=== PATIENT | female | born 1955 | race Caucasian/White ===

== ENCOUNTER 2016-07-13 13:53 | Inpatient (IN) | payer BC, MEDICAID, OTHER ==
[2016-07-13] MEDS ORDERED: ASPIRIN 325 MG TAB PO ONE (14:13)
[2016-07-13] MEDS ORDERED: ASPIRIN 81 MG CHEWABLE TAB ONE (14:16)
--- NOTE | 2016-07-13 14:20 | CPEKG ---
Heart Rate: 108 RR Interval: 556 P-R Interval: 136 QRSD Interval: 80 QT Interval: 328 QTC Interval: 440 P Jones: 21 QRS Jones: 0 T Wave Jones: 11 EKG Severity - ABNORMAL ECG - EKG Impression: SINUS TACHYCARDIA EKG Impression: LEFT VENTRICULAR HYPERTROPHY Electronically Signed By: Ruddy Torres 13-Jul-2016 17:07:39
[2016-07-13 15:01] LABS: HEMATOCRIT 38.9 % (38.0-47.0); HEMOGLOBIN 13.3 g/dL (12.6-16.3); MEAN CELL HEMOGLOBIN 29.4 pg (27.9-34.1); MEAN CELL HEMOGLOBIN CONCENTR. 34.2 g/dL (32.4-36.7); MEAN CELL VOLUME 86.1 fL (81.5-99.8); RED BLOOD CELL COUNT 4.52 10^6/uL (4.18-5.33); RED CELL DISTRIBUTION WIDTH 15.1 % (11.5-15.2)
[2016-07-13 15:02] LABS: MEAN PLATELET VOLUME 10.2 fL (8.7-11.7); PLATELET COUNT 102 10^3/uL (150-400)
[2016-07-13 15:04] LABS: ADD DIFF? NO; ADD MORPH? NO; ADD SCAN? NO
[2016-07-13 15:23] LABS: INR 1.17 (0.83-1.16); PROTIME(PATIENT) 14.7 SEC (12.0-15.0)
[2016-07-13 15:24] LABS: APTT 32.7 SEC (23.0-38.0)
[2016-07-13 15:40] LABS: ALANINE AMINOTRANSFERASE 34 IU/L (9-52); ALBUMIN 2.1 g/dL (3.5-5.0); ALKALINE PHOSPHATASE 177 IU/L (38-126); ANION GAP 11 mEq/L (8-16); ASPARTATE AMINOTRANSFERASE 50 IU/L (14-46); BILIRUBIN,TOTAL 1.3 mg/dL (0.1-1.4); CALCIUM 7.6 mg/dL (8.5-10.4); CARBON DIOXIDE 19 mEq/l (22-31); CHLORIDE 106 mEq/L (97-110); CREATININE 1.4 mg/dL (0.6-1.0); GLOMERULAR FILTRATION RATE 38; GLUCOSE 209 mg/dL (70-100); POTASSIUM 4.9 mEq/L (3.5-5.2); SODIUM 136 mEq/L (134-144); TOTAL PROTEIN 6.7 g/dL (6.3-8.2)
[2016-07-13 15:48] LABS: TROPONIN I < 0.012 ng/mL (0-0.034)
--- NOTE | 2016-07-13 15:49 | DX ---
Chest, Two Views - July 13, 2016, at 1427 hours History: Shortness of breath, chest pain. Comparison: 2016. Findings: Cardiac silhouette is within normal range. Poor inspiratory phase with patchy bilateral l ower lobe opacities, left greater than right, appearing worse since June 2016. Possible minimal b ilateral pleural effusions. No pneumothorax. No definite pulmonary edema. Impression: Worsening bilateral lower lobe infiltrates, left greater than right, with possible mini mal bilateral pleural effusions, which may represent bilateral lower lobe pneumonia or pulmonary infa rcts. Findings and recommendations discussed with Dr. Ruddy Torres at 1520 hours today.
--- NOTE | 2016-07-13 15:54 | UCPHY ---
H & P Patient Type: Established Chief Complaint Nursing Narrative: cp sob back pain for awhile . Worse with exertion. Seen 06/04 here and repeat xr 06/21 with pcp. Time Seen by Provider: 07/13/16 14:17 HPI/ROS: This patient presents with a chief complaint of shortness of breath. In June on the the patient was seen here with similar complaints and given IV antibiotics and a Z-Napoleon for pneumonia and discharged. She was seen on the 14 of June by her PCP. A CT scan was obtained on the visit and showed a questionable embolus as well as a small amount of ascites. Apparently this was not followed up. Since then the patient continues to worsen her breathing is much worse and she has noticed that her legs are quite swollen. She describes a central chest pain which is worse with respiration and the supine position and this pain seems to radiate into her right posterior chest. She has had minimal cough and no fever but does say she has been chilled. She has had nausea without vomiting but has had diarrhea after eating for the past week and also anorexia. She has sore throat, ear pain, headache and nasal congestion as well. She denies any urinary tract symptoms. She feels extremely fatigued REVIEW OF SYSTEMS: Constitutional: Fatigue, chills, no fever Eyes: No complaint ENT: Sore throat, nasal congestion, ear pain Respiratory: Shortness of breath minimal cough Cardiac: Chest pain, pleuritic Gastrointestinal: Nausea, anorexia, diarrhea no vomiting Genitourinary: Denies frequency, urgency, dysuria Musculoskeletal: Back pain, swollen legs and feet Skin: No rash Neurological: Headache Source: Patient, RN notes reviewed, Old records Exam Limitations: No limitations - Personal History Current Tetanus Diphtheria and Acellular Pertussis (TDAP): Unsure - Medical/Surgical History Hx Diabetes: Yes Other PMH: HTN, RA, knee replacement, gall bladder, reflux - Family History Significant Family History: No pertinent family hx - Social History Smoking Status: Former smoker - Physical Exam Exam: GENERAL: This patient is alert and appropriate although in mild respiratory distress which was helped by oxygen. She has both tachypneic and tachycardic HEAD: Atraumatic, normocephalic. EYES: Pupils equal round and reactive to light, extraocular movements intact, sclera anicteric, conjunctiva are normal. ENT: TMs normal, nares patent, oropharynx clear without exudates. Dry mucous membranes. NECK: Normal range of motion, supple without lymphadenopathy or JVD. LUNGS: There are diffuse rales present HEART: Regular rate and rhythm without murmurs, rubs or gallops. Tachycardia ABDOMEN: Soft, nontender, normoactive bowel sounds. No guarding, no rebound. No masses appreciated. EXTREMITIES: There is prominent lower extremity edema although I can detect no presacral edema. Peripheral pulses are symmetric. The patient's range of motion is limited by her significant rheumatoid arthritis NEUROLOGICAL: Cranial nerves II through XII grossly intact. Normal speech, PSYCH: Normal mood, normal affect. SKIN: Warm, dry, normal turgor, no visible rashes or lesions. Back: There is tenderness in the midline lower back and also mild tenderness over the right CVA area. Constitutional: Initial Vital Signs Temperature (C) 36.6 C 07/13/16 14:15 Heart Rate 114 H 07/13/16 14:15 Respiratory Rate 30 H 07/13/16 14:15 Blood Pressure 185/83 H 07/13/16 14:15 O2 Sat (%) 89 L 07/13/16 14:15 O2 Delivery Mode Nasal Cannula O2 (L/minute) 3 Allergies/Adverse Reactions: No Known Allergies Allergy (Verified 07/13/16 13:57) Home Medications: Medication Instructions Recorded Actemera 04/05/11 Omeprazole 20 mg PO 04/17/11 Insulin Glargine [Lantus 100 01/20/16 UNITS/ML (*)] Losartan Potassium [Cozaar] 01/20/16 Tocilizumab [ACTEMRA] 01/20/16 Medical Decision Making - Diagnostics EKG Interpretation: An EKG shows no acute changes Imaging: A chest x-ray shows some infiltrative changes at the bases but there is no eliezer congestive heart failure, pulmonary edema or changes of COPD. A pulmonary angiogram shows no evidence of pulmonary embolus. In addition there is evidence for liver disease and there is a small amount of ascites present. ED Course/Re-evaluation: An IV was started the patient was hydrated with normal saline and she was given 500 mg of azithromycin and 2 g of Rocephin intravenously. She was maintained on oxygen and also monitored throughout her stay in the department. She remained stable although uncomfortable throughout her stay. The hospitalist was contacted and agreed to accept this patient in transfer. Differential Diagnosis: There is no evidence at this time for congestive failure except for her elevated BNP and no evidence for pulmonary embolus. Because of the elevated lactate early sepsis is a possibility in spite of the fact that her temperature and white blood cell count not elevated. This potentially could be related to diminished perfusion. Her elevated BUN and creatinine potentially could be due to dehydration although this is unclear. - Data Points Laboratory Results: Laboratory Results 07/13/16 14:45 07/13/16 14:45 07/13/16 14:45 WBC 5.50 10^3/uL (3.80-9.50) RBC 4.52 10^6/uL (4.18-5.33) Hgb 13.3 g/dL (12.6-16.3) Hct 38.9 % (38.0-47.0) MCV 86.1 fL (81.5-99.8) MCH 29.4 pg (27.9-34.1) MCHC 34.2 g/dL (32.4-36.7) RDW 15.1 % (11.5-15.2) Plt Count 102 L 10^3/uL (150-400) MPV 10.2 fL (8.7-11.7) Neut % (Auto) 4.1 L % (39.3-74.2) Lymph % (Auto) 0.7 L % (15.0-45.0) [place] % (Auto) 0.6 L % (4.5-13.0) Eos % (Auto) 0.0 L % (0.6-7.6) Baso % (Auto) 0.0 L % (0.3-1.7) Nucleat RBC Rel Count 0.0 % (0.0-0.2) Absolute Neuts (auto) 75.00 H 10^3/uL (1.70-6.50) Absolute Lymphs (auto) 12.40 H 10^3/uL (1.00-3.00) Absolute Monos (auto) 11.60 H 10^3/uL (0.30-0.80) Absolute Eos (auto) 0.40 10^3/uL (0.03-0.40) Absolute Basos (auto) 0.20 H 10^3/uL (0.02-0.10) Absolute Nucleated RBC 0.00 10^3/uL (0-0.01) Immature Gran % 0.0 % (0.0-1.1) Immature Gran # 0.40 H 10^3/uL (0.00-0.10) VBG Lactic Acid 2.4 H mmol/L (0.7-2.1) Sodium 136 mEq/L (134-144) Potassium 4.9 mEq/L (3.5-5.2) Chloride 106 mEq/L (97-110) Carbon Dioxide 19 L mEq/l (22-31) Anion Gap 11 mEq/L (8-16) BUN 42 H mg/dL (7-23) Creatinine 1.4 H mg/dL (0.6-1.0) Estimated GFR 38 Glucose 209 H mg/dL (70-100) Calcium 7.6 L mg/dL (8.5-10.4) Total Bilirubin 1.3 mg/dL (0.1-1.4) AST 50 H IU/L (14-46) ALT 34 IU/L (9-52) Alkaline Phosphatase 177 H IU/L (38-126) Troponin I < 0.012 ng/mL (0-0.034) NT-Pro-B Natriuret Pep 1660 H pg/mL (0-125) Total Protein 6.7 g/dL (6.3-8.2) Albumin 2.1 L g/dL (3.5-5.0) Medications Given: Discontinued Medications Aspirin (Aspirin) 325 mg PO EDNOW ONE Stop: 07/13/16 14:14 Last Admin: 07/13/16 14:20 Dose: 325 mg Ceftriaxone Sodium 2 gm/ (Dextrose) 50 mls @ 100 mls/hr IV EDNOW ONE PRN Reason: Protocol Stop: 07/13/16 17:17 Last Admin: 07/13/16 16:58 Dose: 50 mls Azithromycin 500 mg/ Dextrose 255 mls @ 255 mls/hr IV EDNOW ONE PRN Reason: Protocol Stop: 07/13/16 17:48 Last Admin: 07/13/16 18:00 Dose: 255 mls Departure - Departure Disposition: [facility] Clinical Impression: Pneumonia Qualifiers: Pneumonia type: due to unspecified organism Laterality: bilateral Lung location : lower lobe of lung Qualifier Code: (J18.9) Pneumonia, unspecified organism Clinical Impression: (Ruled Out): Dyspnea Condition: Fair - PQRS PQRS Measurement: Not applicable
[2016-07-13] MEDS ORDERED: IOPAMIDOL (ISOVUE 370) 100 ML BTL IV ONE (15:58)
--- NOTE | 2016-07-13 16:40 | CT ---
CT Pulmonary Angiogram Clinical Indications: Shortness of breath and chest pain. Technique: Thinly collimated multidetector helical CT imaging was performed through the chest while 85 mL Isovue-370 were injected intravenously, without complication. The images were then transferred to an independent workstation where multiplanar and three-dimensional reconstructions were performed by the interpreting physician and reviewed at multiple windows. Dose reduction techniques were util ized. Comparison: June 04, 2016. Findings Chest: Patchy bibasilar consolidative change and some linear scarring or consolidation in the right upper lobe is present. This was worse than comparison. Heart size is normal and there is no pericar dial effusion. No adenopathy and no pulmonary masses are found. CT Pulmonary Angiogram: No intraluminal filling defects are seen in the pulmonary arterial system to suggest pulmonary embolus. The thoracic aorta has a normal contour, without evidence of aneurysm or dissection. In the upper abdomen, there is ascites, a low dense liver on the postcontrast imaging, and some sugge stion of splenomegaly. Impressions 1. No pulmonary emboli. 2. Patchy basilar consolidative change. There is also some linear scarring or volume loss against t he minor fissure in the right upper lobe. 3. Diffuse low dense liver, with ascites and splenomegaly, suggests fatty infiltration of the liver versus cirrhosis. Critical results discussed by Dr. Gaitan with Dr. Ruddy Torres on July 13, 2016 at 1632 hours.
[2016-07-13] MEDS ORDERED: ONDANSETRON 4 MG/2 ML VIAL IVP PRN (16:42)
[2016-07-13] MEDS ORDERED: NS 1,000 ML IV ONE (16:42)
[2016-07-13] MEDS ORDERED: NS 1,000 ML IV SCH (16:45)
[2016-07-13] MEDS ORDERED: cefTRIAXone 1 GM VIAL ONE (16:45)
[2016-07-13] MEDS ORDERED: NS 100 ML BAG (MINI-BAG) IV ONE (16:47)
[2016-07-13] MEDS ORDERED: cefTRIAXone 2 GM in D5W 50 ML IV ONE (16:48)
[2016-07-13] MEDS ORDERED: AZITHROMYCIN IV 500 MG in D5W 250 ML IV ONE (16:49)
[2016-07-13] MEDS ORDERED: D50W 25 GM/50 ML SYR IVP PRN (21:25)
[2016-07-13] MEDS: IPRATROPIUM/ALBUTEROL 3 ML DEYVIAL IH SCH (21:35)
[2016-07-13] MEDS: ACETAMINOPHEN 325 MG TAB PO PRN (22:14)
[2016-07-13] MEDS: guaiFENesin 600 MG TAB.ER PO SCH (22:14)
[2016-07-13] MEDS: HEPARIN 5,000 UNIT/0.5 ML SYR SC SCH (22:15)
--- NOTE | 2016-07-13 22:40 | GHP ---
[f rep st] HISTORY AND PHYSICAL DATE OF ADMISSION: 07/13/2016 CHIEF COMPLAINT: Shortness of breath. HISTORY OF PRESENT ILLNESS: This is a 61-year-old female with a history of diabetes, hypertension, a nd rheumatoid arthritis who presents with a complaint of essentially 6 weeks of shortness of breath. Patient presented to the outside urgent care clinic with complaints of shortness of breath in early June and, at that time, was given antibiotics for presumed pneumonia. The patient completed a co urse of azithromycin and describes that it did improve her symptoms and then in the last 2 weeks has had recurrence of her shortness of breath. She describes nonproductive cough, subjective fevers, and chills, and shortness of breath. Patient cannot identify any known sick contacts. She recently mov ed from [place] approximately a month ago. In [place] she had no history of lung disease. She was on Humira for her rheumatoid arthritis which was discontinued when she was diagnosed with pneumo ronaldo. The patient reports new lower extremity edema in the past couple of weeks. PAST MEDICAL HISTORY: 1. Diabetes. 2. Hypertension. 3. Rheumatoid arthritis. SOCIAL HISTORY: Negative for tobacco, alcohol or illicit drugs. FAMILY HISTORY: Positive for diabetes. ADVANCE DIRECTIVES: Patient is full cor, full tube. Her would be her medical decision maker . REVIEW OF SYSTEMS: A 10-point review of systems is negative with the exception of that reported in t he HPI. PHYSICAL EXAMINATION: VITAL SIGNS: At the [facility], the patient is 89%-90% on room air. Currently saturating 98% on 5 L. Blood pressure 179/76, heart rate ranging from the 90s to low 100s. Respiratory rate in the low 20s to high 20s. Afebrile at 36.9. GENERAL: This is a depressed- appearing middle-aged female sitting up in bed. HEENT: Notable for dry mucous membranes. Eye exam is negative for any icterus. CARDIAC: Patient is tachycardic but regular. PULMONARY: Has poor res piratory effort. Had isolated rale in the right middle lobe. Otherwise, diminished breath sounds at bilateral bases. No wheezing is appreciated. GASTROINTESTINAL: Positive bowel sounds. ABDOMEN: S oft and nontender to palpation. MUSCULOSKELETAL: Notable for 2+ symmetric lower extremity edema. NE UROLOGIC: She is alert and oriented x3. PSYCHIATRIC: She appears very depressed to me and withdraw n during my examination. LABORATORY DATA: White count 5.5, hematocrit 38.9, platelets of 102, INR 1.17. Initial lactic acid of 2.4, creatinine 1.4. Baseline unknown. BUN 42, troponin less than 0.012. BNP of 1660. The alex ent is negative for influenza. A CTA of the chest, which I personally reviewed and interpreted, show s no pulmonary emboli. There is patchy bibasilar consolidation visualized. EKG, which I personally reviewed and interpreted, shows sinus rhythm, normal axis, voltage consistent with LVH, no acute ST-T changes. ASSESSMENT AND PLAN: This is a 61-year-old female presenting with persistent shortness of breath. 1. Acute hypoxic respiratory failure. Patient's oxygen saturations are fluctuating a bit but appear to be ranging with requirements from 1-5 L. Suspect it is related to the consolidative changes we s ee at her lung bases. May be an untreated pneumonia after a course of azithromycin. We will empiric ally treat for community-acquired pneumonia and send laboratories to rule out some of the more atypic al pathogens. Blood cultures have been sent ordering sputum cultures, and we will follow her clinica l progress. 2. Presumed community-acquired pneumonia, as above. We see consolidation in the bilateral bases. W e will start empiric antibiotics and follow her culture data. 3. Presumed acute kidney injury. Suspect this is related to volume. The patient's says her intake has been low. We will fluid resuscitate and follow in the morning. 4. New lower extremity edema. This is a new physical complaint for her. Although my suspicion for a new diagnosis of heart failure is low, her BNP is elevated which warrants a transthoracic echocardi ogram. The patient has been through some recent stressors. Could consider something such as takotsu wen; however, her EKG and troponin are negative. We will order a transthoracic echo and go from there . 5. Diabetes. She reports that her insulin requirements have been down recently. I suspect this is likely related to her decreased oral intake. We will start only with sliding scale insulin. Can add back Lantus if her sugars are too high. 6. Thrombocytopenia. Again, not sure if this is new or old. We will recheck a platelet count in th e morning. Have written for subcutaneous heparin for prophylaxis. We will need to follow this close ly. 7. Hypertension. We will continue patient's home medications when reconciled. 8. Rheumatoid arthritis. We will continue to hold the patient's biologic agents in the setting of p resumed acute infection. 9. Prophylaxis with heparin subcutaneously secondary to her creatinine clearance. 10. Diet. Diabetic. DISPOSITION: I expect greater than 2 midnights as the patient is requiring more diagnostic workup to understand her chronic complaints of shortness of breath and her pulmonary infiltrates. I have disc ussed the case with the [facility] doctor. The patient will be transitioned over to e PCU for care. /[id number]/MODL
[2016-07-14] MEDS: HEPARIN 5,000 UNIT/0.5 ML SYR SC SCH ×4 (04:48→19:33)
[2016-07-14 05:02] LABS: % IMMATURE GRANULYOCYTES 0.3 % (0.0-1.1); ABSOLUTE IMMATURE GRANULOCYTES 0.01 10^3/uL (0.00-0.10); ADD DIFF? NO; ADD MORPH? NO; ADD SCAN? NO; ATYPICAL LYMPHOCYTE FLAG 0 (0-99); FRAGMENT RBC FLAG 0 (0-99); HEMATOCRIT 32.6 % (38.0-47.0); LEFT SHIFT FLG 40 (0-99); LIPEMIA HEMOLYSIS FLAG 80 (0-99); MEAN CELL HEMOGLOBIN 29.9 pg (27.9-34.1); MEAN CELL HEMOGLOBIN CONCENTR. 33.7 g/dL (32.4-36.7); MEAN CELL VOLUME 88.6 fL (81.5-99.8); MEAN PLATELET VOLUME 11.9 fL (8.7-11.7); PLATELET CLUMPS FLAG 50 (0-99); PLATELET COUNT 77 10^3/uL (150-400); RED BLOOD CELL COUNT 3.68 10^6/uL (4.18-5.33); RED CELL DISTRIBUTION WIDTH 15.2 % (11.5-15.2)
[2016-07-14 05:17] LABS: ANION GAP 7 mEq/L (8-16); CARBON DIOXIDE 20 mEq/l (22-31); CHLORIDE 110 mEq/L (97-110); CREATININE 1.4 mg/dL (0.6-1.0); GLOMERULAR FILTRATION RATE 38; GLUCOSE 160 mg/dL (70-100); POTASSIUM 4.8 mEq/L (3.5-5.2); SODIUM 137 mEq/L (134-144)
[2016-07-14] MEDS: IPRATROPIUM/ALBUTEROL 3 ML DEYVIAL IH SCH ×4 (06:00→21:36)
[2016-07-14] MEDS: HYDROCODONE/APAP 5/325 TAB PO PRN ×3 (07:45→21:17)
[2016-07-14] MEDS: INSULIN LISPRO 100 UNIT/ML SC SCH ×3 (07:46→17:51)
[2016-07-14] MEDS: LORazepam 0.5 MG TAB PO PRN ×2 (07:46→21:17)
[2016-07-14] MEDS ORDERED: FUROSEMIDE 40 MG/4 ML VIAL IVP ONE (08:36)
--- NOTE | 2016-07-14 08:38 | HOSPPROG ---
Hospitalist Progress Note Assessment/Plan: Acute hypoxemic respiratory failure 2/2 b/l LL PNA - Flu neg. Lactate normalized. Also query element of failure given LE edema, orthopnea, pleural effusions and elevated BNP (1600 compared to ~500 prior). -Cont Ceftriaxone/Azithromycin -BCx's pending -Echo now -Give IV Lasix, hold IVF's -requiring just 1 LPM O2 -query some anxiety component to her dyspneic symptoms Abdominal pain - LFT's mildly elevated and CT notes possible cirrhosis / ascites. Pt denies etoh hx, but notes h/o possible cirrhosis -abdominal u/s -consider paracentesis if significant ascites present Hypertension - cont losartan DM - Will check a1c and give just half her Lantus dose given her acute illness and presumed decreased oral intake. Up-titrate as indicated. Thrombocytopenia - plts dropped to 77 today. Monitor closely RA - hold biologic given acute infection DVT PPLX - MITZI Full code Dispo - cont inpt Subjective: Pt feels SOB, endorses orthopnea, PND, LE edema. No fevers. No cough. Appetite fair. Objective: Vital Signs Temp Pulse Resp BP Pulse Ox 37.3 C 105 H 20 144/66 H 91 L 07/14/16 07:37 07/14/16 07:37 07/14/16 07:37 07/14/16 07:37 07/14/16 07:37 Laboratory Results 07/14/16 04:23 07/14/16 04:23 07/13/16 07/14/16 07/15/16 05:59 05:59 05:59 Intake Total 650 Balance 650 PT 14.7 SEC (12.0-15.0) 07/13/16 Unknown INR 1.17 (0.83-1.16) H 07/13/16 Unknown - Physical Exam Constitutional: no apparent distress Eyes: PERRL Ears, Nose, Mouth, Throat: moist mucous membranes Cardiovascular: regular rate and rhythym, no murmur, rub, or gallop Respiratory: no respiratory distress, inspiratory crackles Gastrointestinal: normoactive bowel sounds, tenderness, other (diffuse TTP, worse in LUQ, no r/r/g) Skin: warm Neurologic: AAOx3 Psychiatric: interacting appropriately ICD10 Worksheet Patient Problems: Problems Problem Status Diagnosed Pneumonia Acute
[2016-07-14] MEDS: guaiFENesin 600 MG TAB.ER PO SCH ×2 (09:19→21:17)
[2016-07-14] MEDS: AZITHROMYCIN IV 500 MG in D5W 250 ML IV SCH (10:19)
--- NOTE | 2016-07-14 10:57 | ECHO ---
[id number] + + [address] : : [place] [address] : : [phone] + Adult Echocardiographic Report + -----+ :Name: SOFÍA JARRELL SStudy Date: 07/14/2016 08:41 AM : : Hospital Admission Number: [id number] Location : 215: :: 1955 Gender: Female Height: 61 in : :Age: 61 yrs Race: WH Weight: 190 lb : :Reason For Study: Eval LV Fx : : BSA: 1.8 meters2 : :History: SOB, LE Edema : + -----+ MMode/2D Measurements & Calculations IVSd: 0.95 cm LVIDd: 4.2 cm FS: 34.2 % Ao root diam: 2.7 cm LVPWd: 1.1 cm LVIDs: 2.8 cm EDV(Teich): 79.2 ml ACS: 1.6 cm ESV(Teich): 28.8 ml EF(Teich): 63.6 % Normal Measurement Values: + + :LVIDd (3.5-5.7cm) IVSd (0.6-1.1cm) LVPWd (0.6-1.1cm) Aortic Root (2.0-3.7cm)Left Atrium (1.5-4.0cm): :LV Vol(d) (76-115ml) LV Vol(s) (29-48ml) Ejec Fraction (50-65%)PV Ernesto (0.6- 1.2m/s) TV Ernesto (0.4-1.0m/s) : :MV E Ernesto (0.8-1.0m/s)MV A Ernesto (0.3-1.0m/s)LVOT Ernesto (0.7-1.2m/s) Asc Ao Ernesto ( 0.9-1.8m/s) : + + Doppler Measurements & Calculations MV E max ernesto: Ao V2 max: LV V1 max: PA V2 max: 115.5 cm/sec 160.2 cm/sec 97.2 cm/sec 109.9 cm/sec MV A max ernesto: Ao max PG: LV V1 max PG: PA max P.7 cm/sec 10.3 mmHg 3.8 mmHg 4.8 mmHg MV E/A: 1.2 TR max ernesto: 321.7 cm/sec TR max P.4 mmHg RAP systole: 5.0 mmHg RVSP(TR): 46.4 mmHg Left Ventricle The left ventricle is normal in size. There is normal left ventricular wall thickness. The left ventricular ejection fraction is normal. There is Doppler evidence for diastolic dysfunction. Ejection Fraction = 64%. No regional wall motion abnormalities noted. Right Ventricle The right ventricle is normal in size and function. Atria The left atrial size is normal. Right atrial size is normal. Mitral Valve The mitral valve is normal. There is no evidence of mitral valve prolapse. There is no mitral valve stenosis. There is mild mitral regurgitation. Tricuspid Valve There is mild tricuspid regurgitation. Right ventricular systolic pressure is 46mmHg. There is Doppler evidence for moderate pulmonary hypertension. Aortic Valve The aortic valve is normal in structure and function. There is no aortic stenosis. There is no aortic insufficiency. Pulmonic Valve The pulmonic valve is normal in structure and function. There is no pulmonic valvular regurgitation. Great Vessels The aortic root is normal size. Pericardium/Pleural There is no pericardial effusion. Incidental finding of left lung fluid noted. Conclusion A complete two-dimensional transthoracic echocardiogram was performed (2D, M-mode, Doppler and color flow Doppler). The left ventricular ejection fraction is normal. There is Doppler evidence for diastolic dysfunction. Ejection Fraction = 64%. No regional wall motion abnormalities noted. The right ventricle is normal in size and function. The left atrial size is normal. The mitral valve is normal. There is mild mitral regurgitation. There is mild tricuspid regurgitation. Right ventricular systolic pressure is 46mmHg. There is Doppler evidence for moderate pulmonary hypertension. The aortic valve is normal in structure and function. The pulmonic valve is normal in structure and function. The aortic root is normal size. There is no pericardial effusion. Final Reading Physician: Jimmie Gracia signed on 07/14/2016 10:56 AM Ordering Physician: Colette Zambrano Performed By: Antoni Ly, CS
--- NOTE | 2016-07-14 11:50 | US ---
Complete Abdominal Ultrasound History: Abdominal pain. Comparison: CT angiogram of the chest dated July 13, 2016, CT abdomen March 09, 2012. Findings: The liver has coarsened mildly heterogeneous echotexture with no discrete mass. The right l obe of the liver measures 17 cm. The liver contour is minimally nodular. Visualization of portions of the liver are limited by body habitus. There is no intrahepatic biliary dilatation. The common bile duct measures 4 mm and is normal. The gallbladder is surgically absent. The spleen is enlarged, measu ring 17.4 x 16.1 x 5.6 cm. The kidneys have normal echotexture and contour without hydronephrosis or contour deforming masses. Left kidney is difficult to visualize due to body habitus. The right kidney measures 13.1 cm and the left kidney measures 12.6 cm. The visible aorta is normal caliber with part ial obscuration of the aorta by overlying bowel gas. The visible portions of the pancreas are normal with partial obscuration of the pancreatic head and tail by overlying bowel gas. The visible portions of the IVC are normal. A small volume of ascites is present. A tiny right pleural effusion is presen t. Impression: 1. Heterogeneous minimally nodular liver, suspicious for cirrhosis. 2. Splenomegaly. 3. Small volume of ascites. 4. Trace right pleural effusion.
[2016-07-14] MEDS ORDERED: NON-FORMULARY NEW DRUG (Omeprazole [Omeprazole] 20 MG) PO SCH (14:30)
[2016-07-14] MEDS ORDERED: NON-FORMULARY NEW DRUG (Loratadine [Loratadine] 10 MG) PO SCH (14:30)
[2016-07-14 16:20] LABS: HEMOGLOBIN A1C 6.7 % (4.0-6.0)
[2016-07-14] MEDS: INSULIN GLARGINE 100 UNITS/ML SYRINGE SC SCH (21:18)
[2016-07-15] MEDS: HYDROCODONE/APAP 5/325 TAB PO PRN ×3 (04:14→21:50)
[2016-07-15 04:54] LABS: % IMMATURE GRANULYOCYTES 0.5 % (0.0-1.1); ABSOLUTE IMMATURE GRANULOCYTES 0.02 10^3/uL (0.00-0.10); ADD DIFF? NO; ADD MORPH? NO; ADD SCAN? NO; ATYPICAL LYMPHOCYTE FLAG 80 (0-99); FRAGMENT RBC FLAG 0 (0-99); HEMATOCRIT 35.8 % (38.0-47.0); HEMOGLOBIN 11.8 g/dL (12.6-16.3); LEFT SHIFT FLG 30 (0-99); LIPEMIA HEMOLYSIS FLAG 80 (0-99); MEAN CELL HEMOGLOBIN 29.4 pg (27.9-34.1); MEAN CELL VOLUME 89.3 fL (81.5-99.8); MEAN PLATELET VOLUME 11.5 fL (8.7-11.7); PLATELET CLUMPS FLAG 10 (0-99); PLATELET COUNT 96 10^3/uL (150-400); RED BLOOD CELL COUNT 4.01 10^6/uL (4.18-5.33); RED CELL DISTRIBUTION WIDTH 15.2 % (11.5-15.2)
[2016-07-15 04:58] LABS: ALANINE AMINOTRANSFERASE 37 IU/L (9-52); ALBUMIN 2.1 g/dL (3.5-5.0); ALKALINE PHOSPHATASE 155 IU/L (38-126); ANION GAP 9 mEq/L (8-16); ASPARTATE AMINOTRANSFERASE 47 IU/L (14-46); BILIRUBIN,TOTAL 0.6 mg/dL (0.1-1.4); CALCIUM 7.2 mg/dL (8.5-10.4); CARBON DIOXIDE 18 mEq/l (22-31); CHLORIDE 109 mEq/L (97-110); CREATININE 1.3 mg/dL (0.6-1.0); GLOMERULAR FILTRATION RATE 42; GLUCOSE 135 mg/dL (70-100); POTASSIUM 4.8 mEq/L (3.5-5.2); SODIUM 136 mEq/L (134-144); TOTAL PROTEIN 6.4 g/dL (6.3-8.2)
[2016-07-15] MEDS: HEPARIN 5,000 UNIT/0.5 ML SYR SC SCH ×2 (05:17→13:53)
[2016-07-15] MEDS: IPRATROPIUM/ALBUTEROL 3 ML DEYVIAL IH SCH ×4 (05:20→21:16)
[2016-07-15] MEDS ORDERED: FUROSEMIDE 20 MG/2 ML VIAL IVP ONE (08:52)
[2016-07-15] MEDS ORDERED: FUROSEMIDE 40 MG/4 ML VIAL IVP ONE (08:53)
[2016-07-15] MEDS: CETIRIZINE 10 MG TAB PO SCH (09:31)
[2016-07-15] MEDS: INSULIN LISPRO 100 UNIT/ML SC SCH ×3 (09:31→19:26)
[2016-07-15] MEDS: AZITHROMYCIN IV 500 MG in D5W 250 ML IV SCH (09:31)
[2016-07-15] MEDS: LOSARTAN POTASSIUM 50 MG TAB PO SCH (09:32)
[2016-07-15] MEDS: guaiFENesin 600 MG TAB.ER PO SCH ×2 (09:32→21:51)
[2016-07-15] MEDS: PANTOPRAZOLE SODIUM 40 MG TAB PO SCH (09:32)
--- NOTE | 2016-07-15 09:34 | HOSPPROG ---
Hospitalist Progress Note Assessment/Plan: DIAGNOSIS: > ACUTE HYPOXEMIC RESPIRATORY FAILURE > RIGHT-SIDED CONGESTIVE HEART FAILURE, ACUTE > COUGH AND PLEURITIC CHEST PAIN ALONG WITH SOME X-RAY ABNORMALITIES INDICATE SOME TYPE OF PNEUMONITIS, -absence of fever, elevated white count, or response to antibiotics argue against bacterial pneumonia -tested negative for influenza -She does have rheumatoid arthritis, question if this may be autoimmune PLANS: -check repeat chest x-ray today, ordered -Will start Celebrex for her pleuritic pain -further Lasix diuresis at this time -continue current antibiotics at this time. -repeat blood tests for renal function and platelet count tomorrow morning It is hard to tell whether this is an infectious process, or other inflammatory process such as autoimmune. There is clearly right-sided heart failure and pulmonary hypertension, and I believe the pulmonary hypertension is most likely chronic. She tells me that her edema was actually present for approximately 6 weeks and there was some still slight tight sensation in her chest when that came on. There is clearly however at this time a new acute process with cough pleuritic pain and worsening shortness of breath. Therefore I suspect there is either an autoimmune type process or an acute infection on top of some other chronic process. 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: Sinus tachycardia no other arrhythmia Exam: alert oriented skin warm dry color ok resps not labored lungs Breath sounds difficult to hear due to her inability to take deep breath from pain; few rales heard but no wheeze heart regular tachycardic abd soft nondistended nontender, bowel sounds present limbs warm, no edema Joints without swelling redness or warmth or tenderness iv site ok Laboratory data: Her creatinine remained stable today at 1.3, however her baseline is 0.8 so there is some acute component to this I have reviewed the images from her chest x-ray and CT on the day of admission at this time. I do not see left-sided heart failure, there are some inferior lung abnormalities that could be atelectasis but hard to rule out infiltrative process Objective: Vital Signs Temp Pulse Resp BP Pulse Ox 37.8 C 102 H 19 139/71 H 94 07/15/16 08:23 07/15/16 08:23 07/15/16 08:23 07/15/16 08:23 07/15/16 08:23 Laboratory Results 07/15/16 04:21 07/15/16 04:21 07/14/16 07/15/16 07/16/16 06:59 06:59 06:59 Intake Total 650 860 Output Total 1150 Balance 650 -290 PT 14.7 SEC (12.0-15.0) 07/13/16 Unknown INR 1.17 (0.83-1.16) H 07/13/16 Unknown ICD10 Worksheet Patient Problems: Problems Problem Status Diagnosed Pneumonia Acute
--- NOTE | 2016-07-15 09:45 | DX ---
PA and Lateral Chest July 15, 2016 Clinical Indication: Follow up pneumonia and CHF. Comparison: July 13, 2016. Findings: Left consolidation and pleural effusion are stable. Right atelectatic changes and effusion are stable. Impression: Stable bilateral lower lobe infiltrates worse on the left than on the right.
[2016-07-15] MEDS: ACETAMINOPHEN 325 MG TAB PO PRN ×2 (12:38→21:50)
[2016-07-15] MEDS: ENOXAPARIN 40 MG/0.4 ML SYR SC SCH (21:49)
[2016-07-15] MEDS: INSULIN GLARGINE 100 UNITS/ML SYRINGE SC SCH (21:49)
[2016-07-15] MEDS: LORazepam 0.5 MG TAB PO PRN (21:50)
[2016-07-16 04:58] LABS: % IMMATURE GRANULYOCYTES 0.4 % (0.0-1.1); ABSOLUTE IMMATURE GRANULOCYTES 0.01 10^3/uL (0.00-0.10); ADD DIFF? NO; ADD MORPH? NO; ADD SCAN? NO; ATYPICAL LYMPHOCYTE FLAG 90 (0-99); FRAGMENT RBC FLAG 0 (0-99); HEMATOCRIT 31.1 % (38.0-47.0); HEMOGLOBIN 10.5 g/dL (12.6-16.3); LEFT SHIFT FLG 20 (0-99); LIPEMIA HEMOLYSIS FLAG 90 (0-99); MEAN CELL HEMOGLOBIN 29.7 pg (27.9-34.1); MEAN CELL HEMOGLOBIN CONCENTR. 33.8 g/dL (32.4-36.7); MEAN CELL VOLUME 87.9 fL (81.5-99.8); MEAN PLATELET VOLUME 12.8 fL (8.7-11.7); PLATELET CLUMPS FLAG 10 (0-99); PLATELET COUNT 83 10^3/uL (150-400); RED BLOOD CELL COUNT 3.54 10^6/uL (4.18-5.33); RED CELL DISTRIBUTION WIDTH 15.2 % (11.5-15.2)
[2016-07-16 05:12] LABS: ANION GAP 8 mEq/L (8-16); CALCIUM 6.9 mg/dL (8.5-10.4); CARBON DIOXIDE 18 mEq/l (22-31); CHLORIDE 109 mEq/L (97-110); CREATININE 1.5 mg/dL (0.6-1.0); GLOMERULAR FILTRATION RATE 36; GLUCOSE 131 mg/dL (70-100); POTASSIUM 4.2 mEq/L (3.5-5.2); SODIUM 135 mEq/L (134-144)
[2016-07-16] MEDS: IPRATROPIUM/ALBUTEROL 3 ML DEYVIAL IH SCH ×4 (06:14→20:45)
[2016-07-16] MEDS: INSULIN LISPRO 100 UNIT/ML SC SCH ×3 (09:42→18:29)
[2016-07-16] MEDS: guaiFENesin 600 MG TAB.ER PO SCH ×2 (09:42→21:19)
[2016-07-16] MEDS: LOSARTAN POTASSIUM 50 MG TAB PO SCH (09:43)
[2016-07-16] MEDS: PANTOPRAZOLE SODIUM 40 MG TAB PO SCH (09:43)
[2016-07-16] MEDS: CETIRIZINE 10 MG TAB PO SCH (09:43)
[2016-07-16] MEDS: AZITHROMYCIN IV 500 MG in D5W 250 ML IV SCH (10:43)
--- NOTE | 2016-07-16 13:13 | HOSPPROG ---
Hospitalist Progress Note Assessment/Plan: DIAGNOSIS: > ACUTE HYPOXEMIC RESPIRATORY FAILURE > RIGHT-SIDED CONGESTIVE HEART FAILURE, ACUTE > suspected CAP with bibasilar infiltrates vs acute pneumonitis vs ra related lung disease > h/o RA not currently on treatment PLANS: -Lasix 20mg ivp x1 today -cont Celebrex for her pleuritic pain -continue current antibiotics day #4/7 -check esr/crp Subjective: very weak. denies new synovitis. still with STAPLETON and leg swelling Objective: Vital Signs Temp Pulse Resp BP Pulse Ox 36.4 C 102 H 19 135/66 H 93 07/16/16 12:38 07/16/16 12:38 07/16/16 12:38 07/16/16 12:38 07/16/16 12:38 Microbiology 07/13/16 21:45 - Final Sputum, Expectorated Laboratory Results 07/16/16 04:19 07/16/16 04:19 07/15/16 07/16/16 07/17/16 05:59 05:59 05:59 Intake Total 860 700 Output Total 1150 550 Balance -290 150 PT 14.7 SEC (12.0-15.0) 07/13/16 Unknown INR 1.17 (0.83-1.16) H 07/13/16 Unknown - Physical Exam Constitutional: no apparent distress, appears nourished, not in pain Cardiovascular: regular rate and rhythym, no murmur, rub, or gallop, edema, No JVD Respiratory: no respiratory distress, inspiratory crackles, No reduced air movement Gastrointestinal: normoactive bowel sounds, soft, non-tender abdomen, no palpable masses, No guarding, No rebound ICD10 Worksheet Patient Problems: Problems Problem Status Diagnosed Pneumonia Acute
[2016-07-16] MEDS ORDERED: FUROSEMIDE 20 MG/2 ML VIAL IVP ONE (13:18)
[2016-07-16] MEDS: INSULIN GLARGINE 100 UNITS/ML SYRINGE SC SCH (21:18)
[2016-07-16] MEDS: HYDROCODONE/APAP 5/325 TAB PO PRN (21:19)
[2016-07-16] MEDS: ENOXAPARIN 40 MG/0.4 ML SYR SC SCH (21:19)
[2016-07-16] MEDS: ACETAMINOPHEN 325 MG TAB PO PRN (21:20)
[2016-07-16] MEDS: LORazepam 0.5 MG TAB PO PRN (21:21)
[2016-07-17 04:52] LABS: ADD DIFF? NO; ADD MORPH? NO; ADD SCAN? NO; ATYPICAL LYMPHOCYTE FLAG 0 (0-99); FRAGMENT RBC FLAG 0 (0-99); HEMATOCRIT 31.5 % (38.0-47.0); HEMOGLOBIN 10.6 g/dL (12.6-16.3); LEFT SHIFT FLG 80 (0-99); LIPEMIA HEMOLYSIS FLAG 80 (0-99); MEAN CELL HEMOGLOBIN 29.7 pg (27.9-34.1); MEAN CELL HEMOGLOBIN CONCENTR. 33.7 g/dL (32.4-36.7); MEAN CELL VOLUME 88.2 fL (81.5-99.8); MEAN PLATELET VOLUME 12.3 fL (8.7-11.7); PLATELET CLUMPS FLAG 20 (0-99); PLATELET COUNT 78 10^3/uL (150-400); RED BLOOD CELL COUNT 3.57 10^6/uL (4.18-5.33); RED CELL DISTRIBUTION WIDTH 15.1 % (11.5-15.2)
[2016-07-17 04:57] LABS: ANION GAP 7 mEq/L (8-16); CARBON DIOXIDE 19 mEq/l (22-31); CHLORIDE 110 mEq/L (97-110); CREATININE 1.5 mg/dL (0.6-1.0); GLOMERULAR FILTRATION RATE 36; GLUCOSE 98 mg/dL (70-100); POTASSIUM 4.2 mEq/L (3.5-5.2); SODIUM 136 mEq/L (134-144)
[2016-07-17] MEDS: IPRATROPIUM/ALBUTEROL 3 ML DEYVIAL IH SCH ×4 (05:15→20:37)
[2016-07-17] MEDS: INSULIN LISPRO 100 UNIT/ML SC SCH ×3 (08:20→17:51)
[2016-07-17] MEDS: HYDROCODONE/APAP 5/325 TAB PO PRN ×2 (09:20→21:25)
[2016-07-17] MEDS: AZITHROMYCIN 250 MG TAB PO SCH (09:20)
[2016-07-17] MEDS: LOSARTAN POTASSIUM 50 MG TAB PO SCH (09:20)
[2016-07-17] MEDS: PANTOPRAZOLE SODIUM 40 MG TAB PO SCH (09:21)
[2016-07-17] MEDS: CETIRIZINE 10 MG TAB PO SCH (09:21)
[2016-07-17] MEDS: guaiFENesin 600 MG TAB.ER PO SCH ×2 (09:21→21:25)
[2016-07-17] MEDS ORDERED: FUROSEMIDE 40 MG/4 ML VIAL IVP ONE (10:46)
--- NOTE | 2016-07-17 10:54 | HOSPPROG ---
Hospitalist Progress Note Assessment/Plan: DIAGNOSIS: > ACUTE HYPOXEMIC RESPIRATORY FAILURE (improving) > RIGHT-SIDED CONGESTIVE HEART FAILURE, ACUTE (persistent severe bilat leg edema ) > suspected CAP with bibasilar infiltrates vs acute pneumonitis vs ra related lung disease > h/o RA not currently on treatment >LETI PLANS: -lasix 40mg iv x 1 today -leg doppler to eval for dvt -cont Celebrex for her pleuritic pain -continue current antibiotics day #5/7 -esr/crp pending Subjective: feels weak. productive cough. no fevers. no improvement in leg swelling Objective: Vital Signs Temp Pulse Resp BP Pulse Ox 36.8 C 99 12 125/66 H 88 L 07/17/16 07:46 07/17/16 10:40 07/17/16 10:40 07/17/16 07:46 07/17/16 10:40 Microbiology 07/13/16 21:45 - Final Sputum, Expectorated Laboratory Results 07/17/16 03:57 07/17/16 03:57 07/16/16 07/17/16 07/18/16 05:59 05:59 05:59 Intake Total 700 800 Output Total 550 200 Balance 150 600 PT 14.7 SEC (12.0-15.0) 07/13/16 Unknown INR 1.17 (0.83-1.16) H 07/13/16 Unknown - Physical Exam Constitutional: no apparent distress, appears nourished, not in pain Cardiovascular: regular rate and rhythym, no murmur, rub, or gallop (bilat legs) , edema Respiratory: no respiratory distress, no rales or rhonchi, clear to auscultation , reduced air movement Gastrointestinal: normoactive bowel sounds, soft, non-tender abdomen, no palpable masses, No guarding, No rebound Neurologic: AAOx3, sensation intact bilaterally, CN II-XII Intact ICD10 Worksheet Patient Problems: Problems Problem Status Diagnosed Pneumonia Acute
[2016-07-17 12:27] LABS: HEMATOCRIT 31.9 % (38.0-47.0)
[2016-07-17] MEDS: PROBIOTICS PO SCH ×2 (17:09→21:27)
[2016-07-17] MEDS: INSULIN GLARGINE 100 UNITS/ML SYRINGE SC SCH (21:24)
[2016-07-17] MEDS: ENOXAPARIN 40 MG/0.4 ML SYR SC SCH (21:25)
[2016-07-17] MEDS: ACETAMINOPHEN 325 MG TAB PO PRN (21:26)
[2016-07-17] MEDS: LORazepam 0.5 MG TAB PO PRN (21:26)
[2016-07-18 04:31] LABS: % IMMATURE GRANULYOCYTES 0.4 % (0.0-1.1); ABSOLUTE IMMATURE GRANULOCYTES 0.01 10^3/uL (0.00-0.10); ADD DIFF? NO; ADD MORPH? NO; ADD SCAN? NO; ATYPICAL LYMPHOCYTE FLAG 0 (0-99); FRAGMENT RBC FLAG 0 (0-99); HEMATOCRIT 31.8 % (38.0-47.0); HEMOGLOBIN 10.9 g/dL (12.6-16.3); LEFT SHIFT FLG 30 (0-99); LIPEMIA HEMOLYSIS FLAG 90 (0-99); MEAN CELL HEMOGLOBIN 29.8 pg (27.9-34.1); MEAN CELL HEMOGLOBIN CONCENTR. 34.3 g/dL (32.4-36.7); MEAN CELL VOLUME 86.9 fL (81.5-99.8); MEAN PLATELET VOLUME 12.4 fL (8.7-11.7); PLATELET CLUMPS FLAG 0 (0-99); PLATELET COUNT 82 10^3/uL (150-400); RED BLOOD CELL COUNT 3.66 10^6/uL (4.18-5.33); RED CELL DISTRIBUTION WIDTH 15.4 % (11.5-15.2)
[2016-07-18 05:06] LABS: ANION GAP 8 mEq/L (8-16); CALCIUM 7.3 mg/dL (8.5-10.4); CARBON DIOXIDE 18 mEq/l (22-31); CHLORIDE 111 mEq/L (97-110); CREATININE 1.6 mg/dL (0.6-1.0); GLOMERULAR FILTRATION RATE 33; GLUCOSE 126 mg/dL (70-100); POTASSIUM 4.4 mEq/L (3.5-5.2); SODIUM 137 mEq/L (134-144)
[2016-07-18] MEDS: IPRATROPIUM/ALBUTEROL 3 ML DEYVIAL IH SCH ×4 (05:17→21:50)
[2016-07-18] MEDS: INSULIN LISPRO 100 UNIT/ML SC SCH ×3 (09:28→17:34)
[2016-07-18] MEDS: HYDROCODONE/APAP 5/325 TAB PO PRN (09:49)
[2016-07-18] MEDS: guaiFENesin 600 MG TAB.ER PO SCH ×2 (09:51→19:50)
[2016-07-18] MEDS: LOSARTAN POTASSIUM 50 MG TAB PO SCH (09:52)
[2016-07-18] MEDS: PANTOPRAZOLE SODIUM 40 MG TAB PO SCH (09:52)
[2016-07-18] MEDS: AZITHROMYCIN 250 MG TAB PO SCH (09:52)
[2016-07-18] MEDS: PROBIOTICS PO SCH ×3 (09:52→17:34)
[2016-07-18] MEDS: CETIRIZINE 10 MG TAB PO SCH (09:52)
[2016-07-18] MEDS ORDERED: methylPREDNISolone SOD SUCC 125 MG/2 ML VIAL IVP ONE (10:06)
--- NOTE | 2016-07-18 10:39 | DX ---
Portable AP Upright Chest July 18, 2016 at 10:18 a.m. Clinical History: 61-year-old female in the ICU with worsening respiratory status. Comparison Study: Chest, dated July 15, 2016, at 9:07 a.m. Findings: Oxygen tubing and telemetry monitoring lead lines are present. There are moderate hypoventi latory features with persistent bibasilar areas of subsegmental atelectasis versus mild infiltrates. There is mild peribronchial thickening. The trachea is midline. There is no pneumothorax. Impression: Moderate hypoventilatory changes with persistent areas of bibasilar subsegmental atelecta sis versus mild infiltrates.
--- NOTE | 2016-07-18 12:44 | HOSPPROG ---
Hospitalist Progress Note Assessment/Plan: DIAGNOSIS: > ACUTE HYPOXEMIC RESPIRATORY FAILURE (not improving) > RIGHT-SIDED CONGESTIVE HEART FAILURE, ACUTE (persistent severe bilat leg edema ) not improving with 2 days of iv lasix with worsening renal function > suspected CAP with bibasilar infiltrates vs acute pneumonitis vs ra related lung disease > h/o RA not currently on treatment with elevated esr/crp with new joint and back pain > LETI > NAGMA >hypoalbuminemia PLANS: -check bnp and repeat cxr -check albumin tomorrow -will trial solu-medrol and consult pulmonology -send ua and urine spot protein/creatinine -renal to consult tomorrow pending workup -will consider alb/lasix pending bnp -will defer lasix today given no change in leg swelling and worsening renal function. Will readdress after bnp is back -leg doppler to eval for dvt -cont Celebrex for her pleuritic pain -continue current antibiotics day #6/7 pt is high risk Subjective: feels worse today with increased dyspnea/generalized weakness/and new arthralgias in right wrist Objective: Vital Signs Temp Pulse Resp BP Pulse Ox 36.7 C 100 23 H 146/70 H 91 L 07/18/16 12:05 07/18/16 12:05 07/18/16 12:05 07/18/16 12:05 07/18/16 12:05 Microbiology 07/13/16 21:45 - Final Sputum, Expectorated Sputum Culture - Final Maria R [facility] Laboratory Results 07/18/16 03:52 07/18/16 03:52 07/17/16 07/18/16 07/19/16 05:59 05:59 05:59 Intake Total 800 1100 Output Total 200 200 Balance 600 900 PT 14.7 SEC (12.0-15.0) 07/13/16 Unknown INR 1.17 (0.83-1.16) H 07/13/16 Unknown - Physical Exam Constitutional: no apparent distress, appears nourished, not in pain, chronically ill appearing Cardiovascular: regular rate and rhythym, no murmur, rub, or gallop, edema (2+ bilat legs), No JVD Respiratory: no respiratory distress, no rales or rhonchi, clear to auscultation Gastrointestinal: normoactive bowel sounds, soft, non-tender abdomen, no palpable masses Skin: no rashes or abrasions, no fluctuance, no induration Neurologic: AAOx3, sensation intact bilaterally ICD10 Worksheet Patient Problems: Problems Problem Status Diagnosed Pneumonia Acute
[2016-07-18] MEDS ORDERED: LACTULOSE 20 GM/30 ML UDCUP PO PRN (15:26)
[2016-07-18] MEDS ORDERED: POLYETHYLENE GLYCOL 3350 17 GM PKT PO PRN (15:26)
[2016-07-18] MEDS ORDERED: BISACODYL 10 MG SUPP PR PRN (15:26)
[2016-07-18] MEDS ORDERED: MAGNESIUM HYDROXIDE 30 ML UDCUP PO PRN (15:26)
--- NOTE | 2016-07-18 16:00 | US ---
Bilateral Lower Extremity Venous Duplex Doppler Studies Clinical Indications: 61-year-old female inpatient with bilateral lower extremity swelling since Than 2015, becoming worse. Evaluate for a DVT. Technique: A high-frequency transducer was used for compression imaging and Doppler study of the salvador p veins of both legs from the upper calves to the groins. Pulsed Doppler and color Doppler were utili zed, along with various maneuvers to assess flow in the deep veins. The blintze roller indicated that th e exam was slightly limited by the patient's large body habitus. Comparison Study: None. Findings: Right Leg: The deep veins of the groin, thigh, knee, and upper calf are displayed, and are normally compressible. Doppler flow patterns are unremarkable. There is no evidence of deep venous thrombosi s. Left Leg: The deep veins of the groin, thigh, knee, and upper calf are displayed, and are normally c ompressible. Doppler flow patterns are unremarkable. There is no evidence of deep venous thrombosis . There is normal compression of the greater saphenous veins, without superficial thrombosis. The popli teal fossa on each side is normal. Impression: There is no sonographic evidence of deep or superficial venous thrombosis in either lowe r extremity.
[2016-07-18 17:28] LABS: COLOR YELLOW; LEUKOCYTE ESTERASE,URINE NEGATIVE (NEGATIVE); NITRITE,URINE NEGATIVE (NEGATIVE)
[2016-07-18 17:31] LABS: MUCUS TRACE /lpf (NONE-1+); RBC,URINE 15-25 /hpf (0-3)
[2016-07-18] MEDS: SENNOSIDES/DOCUSATE SODIUM TAB PO SCH (19:50)
[2016-07-18] MEDS: ENOXAPARIN 40 MG/0.4 ML SYR SC SCH (21:13)
[2016-07-18] MEDS: INSULIN GLARGINE 100 UNITS/ML SYRINGE SC SCH (21:13)
[2016-07-19] MEDS: IPRATROPIUM/ALBUTEROL 3 ML DEYVIAL IH SCH ×4 (04:53→21:08)
[2016-07-19 05:07] LABS: ALBUMIN 1.7 g/dL (3.5-5.0)
[2016-07-19] MEDS: ACETAMINOPHEN 325 MG TAB PO PRN (05:08)
[2016-07-19] MEDS: HYDROCODONE/APAP 5/325 TAB PO PRN ×2 (09:06→21:01)
[2016-07-19 09:32] LABS: ANION GAP 9 mEq/L (8-16); CALCIUM 7.3 mg/dL (8.5-10.4); CARBON DIOXIDE 16 mEq/l (22-31); CHLORIDE 110 mEq/L (97-110); CREATININE 1.6 mg/dL (0.6-1.0); GLOMERULAR FILTRATION RATE 33; GLUCOSE 223 mg/dL (70-100); POTASSIUM 5.2 mEq/L (3.5-5.2); SODIUM 135 mEq/L (134-144)
[2016-07-19 09:33] LABS: ALBUMIN 1.7 g/dL (3.5-5.0)
[2016-07-19] MEDS: AZITHROMYCIN 250 MG TAB PO SCH (10:13)
[2016-07-19] MEDS: SENNOSIDES/DOCUSATE SODIUM TAB PO SCH ×2 (10:13→21:11)
[2016-07-19] MEDS: guaiFENesin 600 MG TAB.ER PO SCH ×2 (10:14→21:01)
[2016-07-19] MEDS: INSULIN LISPRO 100 UNIT/ML SC SCH ×3 (10:14→18:12)
[2016-07-19] MEDS: CETIRIZINE 10 MG TAB PO SCH (10:14)
[2016-07-19] MEDS: PANTOPRAZOLE SODIUM 40 MG TAB PO SCH (10:14)
[2016-07-19] MEDS: PROBIOTICS PO SCH ×3 (10:15→18:12)
[2016-07-19] MEDS: LOSARTAN POTASSIUM 50 MG TAB PO SCH (10:15)
[2016-07-19] MEDS ORDERED: ALBUMIN 5% 500 ML IV ONE (10:28)
--- NOTE | 2016-07-19 11:23 | PDGENHP ---
History and Physical - Chief Complaint LETI - History of Present Illness Ms. Cherry is a 61 yo F with h/o rheumatoid arthritis and HTN who was admitted on 07/13/16 with pneumonia. Pt states that she her RA meds were switched to Humira in March, and she has not felt well controlled on that. She has had good fluid intake but has not had good PO intake in at least the past two months, decreasing appetite overall. She started to have swelling in her legs last month, which was a new problem for her, did not improve with Lasix being given. She also started to have dypsnea early in June, was diagnosed by urgent care as having pneumonia and given azithromycin. However, abx did not change her dyspnea. She came in for persistent dyspnea and swelling. Echo showed preserved EF of 64%, some diastolic dysfunction and pulmonary HTN. Abd US showed some features concerning for cirrhosis. She has been getting Lasix here until 07/17 with no improvement in her swelling or dypnea, no pulmonary edema noted on CXR, noted to have minimal effusion bilaterally. She did have CTA with contrast given on 07/13 showing no PE. Dopper of BLE shows no DVT. Cr was 1.4 on presentation, noted to be 0.8 in 06/2016. Now, Cr has slowly uptrended to 1.6. Pt states that her legs have been tender to palpation and she has also been having chest pain that is an ongoing issue. At night she has episodes in which she feels like her heart "flips." History Information - Allergies/Home Medication List Allergies/Adverse Reactions: No Known Allergies Allergy (Verified 07/13/16 13:57) Home Medications: Omeprazole 20 mg PO DAILY PRN 04/17/11 [Last Taken Unknown] Insulin Glargine [Lantus 100 UNITS/ML (*)] 50 units SQ DAILY 01/20/16 [Last Taken 07/13/16] Acetaminophen [Tylenol 325mg (*)] 325 mg PO DAILY PRN 07/14/16 [Last Taken Unknown] Herbals/Supplements -Info Only 1 ea PO DAILY 07/14/16 [Last Taken Unknown] Loratadine 10 mg PO DAILY 07/14/16 [Last Taken 07/13/16] Losartan Potassium [Cozaar 50 mg (*)] 50 mg PO DAILY 07/14/16 [Last Taken ] Multivitamins [Multivitamin (*)] 1 each PO DAILY 07/14/16 [Last Taken Unknown] I have personally reviewed and updated: medical history - Past Medical History diabetes type 2, hypertension Additional medical history: rheumatoid arthritis - Surgical History Reports: no pertinent surgical hx - Family History Positive for: diabetes type II - Social History Smoking Status: Former smoker Review of Systems ROS: 10pt was reviewed & negative except for what was stated in HPI & below Physical Exam Temp Pulse Resp BP Pulse Ox 36.7 C 91 18 130/59 H 97 07/19/16 08:00 07/19/16 10:05 07/19/16 10:05 07/19/16 08:00 07/19/16 10:05 O2 (L/minute) 1 Constitutional: no apparent distress, obese Eyes: PERRL, anicteric sclera, EOMI Ears, Nose, Mouth, Throat: moist mucous membranes, no oral mucosal ulcers Cardiovascular: regular rate and rhythym, no murmur, rub, or gallop, pulses symmetric bilaterally Peripheral Pulses: 2+: dorsalis-pedis (R), dorsalis-pedis (L) Respiratory: no respiratory distress, clear to auscultation, bronchial breath sounds Gastrointestinal: normoactive bowel sounds, soft, non-tender abdomen Skin: warm, no rashes or abrasions Musculoskeletal: no joint effusions, generalized weakness Neurologic: AAOx3, CN II-XII Intact, No asterixes Psychiatric: interacting appropriately, not anxious, not encephalopathic, thought process linear Lab Data & Imaging Review 07/18/16 03:52 07/19/16 04:34 WBC 2.74 10^3/uL (3.80-9.50) L 07/18/16 03:52 RBC 3.66 10^6/uL (4.18-5.33) L 07/18/16 03:52 Hgb 10.9 g/dL (12.6-16.3) L 07/18/16 03:52 Hct 31.8 % (38.0-47.0) L 07/18/16 03:52 MCV 86.9 fL (81.5-99.8) 07/18/16 03:52 MCH 29.8 pg (27.9-34.1) 07/18/16 03:52 MCHC 34.3 g/dL (32.4-36.7) 07/18/16 03:52 RDW 15.4 % (11.5-15.2) H 07/18/16 03:52 Plt Count 82 10^3/uL (150-400) L 07/18/16 03:52 MPV 12.4 fL (8.7-11.7) H 07/18/16 03:52 Neut % (Auto) 67.4 % (39.3-74.2) 07/18/16 03:52 Lymph % (Auto) 16.1 % (15.0-45.0) 07/18/16 03:52 Toombs % (Auto) 12.4 % (4.5-13.0) 07/18/16 03:52 Eos % (Auto) 3.3 % (0.6-7.6) 07/18/16 03:52 Baso % (Auto) 0.4 % (0.3-1.7) 07/18/16 03:52 Nucleat RBC Rel Count 0.0 % (0.0-0.2) 07/18/16 03:52 Absolute Neuts (auto) 1.85 10^3/uL (1.70-6.50) 07/18/16 03:52 Absolute Lymphs (auto) 0.44 10^3/uL (1.00-3.00) L 07/18/16 03:52 Absolute Monos (auto) 0.34 10^3/uL (0.30-0.80) 07/18/16 03:52 Absolute Eos (auto) 0.09 10^3/uL (0.03-0.40) 07/18/16 03:52 Absolute Basos (auto) 0.01 10^3/uL (0.02-0.10) L 07/18/16 03:52 Absolute Nucleated RBC 0.00 10^3/uL (0-0.01) 07/18/16 03:52 Immature Gran % 0.4 % (0.0-1.1) 07/18/16 03:52 Immature Gran # 0.01 10^3/uL (0.00-0.10) 07/18/16 03:52 ESR 78 MM/HR (0-30) H 07/17/16 03:54 PT 14.7 SEC (12.0-15.0) 07/13/16 Unknown INR 1.17 (0.83-1.16) H 07/13/16 Unknown APTT 32.7 SEC (23.0-38.0) 07/13/16 Unknown VBG Lactic Acid 1.1 mmol/L (0.7-2.1) 07/14/16 04:23 Sodium 135 mEq/L (134-144) 07/19/16 04:34 Potassium 5.2 mEq/L (3.5-5.2) 07/19/16 04:34 Chloride 110 mEq/L (97-110) 07/19/16 04:34 Carbon Dioxide 16 mEq/l (22-31) L 07/19/16 04:34 Anion Gap 9 mEq/L (8-16) 07/19/16 04:34 BUN 59 mg/dL (7-23) H 07/19/16 04:34 Creatinine 1.6 mg/dL (0.6-1.0) H 07/19/16 04:34 Estimated GFR 33 07/19/16 04:34 Glucose 223 mg/dL (70-100) H 07/19/16 04:34 POC Glucose 205 mg/dL (70-100) H 07/19/16 09:50 Hemoglobin A1c 6.7 % (4.0-6.0) H 07/14/16 04:23 Estim Average Glucose 146 mg/dL (68-126) H 07/14/16 04:23 Calcium 7.3 mg/dL (8.5-10.4) L 07/19/16 04:34 Phosphorus 5.8 mg/dL (2.5-4.5) H 07/19/16 04:34 Total Bilirubin 0.6 mg/dL (0.1-1.4) D 07/15/16 04:21 AST 47 IU/L (14-46) H 07/15/16 04:21 ALT 37 IU/L (9-52) 07/15/16 04:21 Alkaline Phosphatase 155 IU/L (38-126) H 07/15/16 04:21 Troponin I < 0.012 ng/mL (0-0.034) 07/13/16 14:45 C-Reactive Protein 79.9 mg/L (<10.0) H 07/17/16 03:54 NT-Pro-B Natriuret Pep 1280 pg/mL (0-125) H 07/18/16 03:52 Total Protein 6.4 g/dL (6.3-8.2) 07/15/16 04:21 Albumin 1.7 g/dL (3.5-5.0) L 07/19/16 04:34 Urine Color YELLOW 07/18/16 17:00 Urine Appearance HAZY 07/18/16 17:00 Urine pH 5.0 (5.0-7.5) 07/18/16 17:00 Ur Specific [place] 1.019 (1.002-1.030) 07/18/16 17:00 Urine Protein 2+ (NEGATIVE) H 07/18/16 17:00 Urine Ketones NEGATIVE (NEGATIVE) 07/18/16 17:00 Urine Blood 3+ (NEGATIVE) H 07/18/16 17:00 Urine Nitrate NEGATIVE (NEGATIVE) 07/18/16 17:00 Urine Bilirubin NEGATIVE (NEGATIVE) 07/18/16 17:00 Urine Urobilinogen NEGATIVE EU (0.2-1.0) 07/18/16 17:00 Ur Leukocyte Esterase NEGATIVE (NEGATIVE) 07/18/16 17:00 Urine RBC 15-25 /hpf (0-3) H 07/18/16 17:00 Urine WBC 10-15 /hpf (0-3) H 07/18/16 17:00 Ur Epithelial Cells 1+ /lpf (NONE-1+) 07/18/16 17:00 Urine Mucus TRACE /lpf (NONE-1+) 07/18/16 17:00 Ur Random Creatinine 125.3 mg/dL 07/18/16 17:00 Urine Glucose NEGATIVE (NEGATIVE) 07/18/16 17:00 Influenza Typ A,B (DFA) NEGATIVE FOR FLU (NEGATIVE) 07/13/16 17:20 Urine Legionella Ag Negative (Negative) 07/14/16 09:15 Ur Strep pneumoniae Ag Negative (Negative) 07/14/16 09:15 Assessment & Plan Assessment: Assessment/Plan: LETI: multifactorial, may have been initially due infection, also with some component of MIREYA with contrast given at presentation. Noted to have some blood and protein in urine, could have a PIGN. - Will send C3, C4, CK. - Urine PCR pending. - No need for HD at this time. - Will consider full serological workup based on above results. - Will continue to monitor. - Strict I/Os. - Avoid MOM, morphine, demerol, NSAIDs, contrast, aminoglycosides, ACEI/ARB, fleets, and other nephrotoxins. - Will stop Celebrex and losartan for now. Hypervolemia: in setting of low albumin at 1.7. Pt has diastolic dysfunction and pulmonary HTN, also with some features concerning for cirrhosis. - Urine PCR pending. - Agree with albumin and Lasix being given today. Hyperkalemia: K 5.2 today. - Holding losartan, getting Lasix. - Will continue to monitor. Thank you for the interesting consult. Nephrology will continue to follow, please call if you have additional questions or concerns.
--- NOTE | 2016-07-19 11:39 | GCON ---
[f rep st] CONSULTATION PULMONARY CONSULTATION DATE OF CONSULTATION: 07/19/2016 REASON FOR CONSULTATION: Shortness of breath, chest pain. HISTORY: The patient is a 61-year-old with a history of underlying rheumatoid arthritis, who was adm itted on July 13 for shortness of breath and chest pain. Symptoms had been present for at least 6 weeks, following her return to [place] from [place]. She previously lived in [place] and had [facility] and [facility] in the [facility] area. She has not reestablished primary care or rheumatologic followup. She has been on Humira for the last several months. She was on other immun osuppressants and prednisone in the past. Her last dose was mid June, which she self administere d. Several weeks ago she was seen in urgent care. She was given azithromycin at that time. Her amrio n complaint is that of chest pain. A CT angiogram of the chest on admission was unremarkable for pul monary embolic disease or any obvious interstitial lung disease. There was evidence of basilar atele ctasis and/or some patchy consolidative changes. No pleural effusions were seen. She had no eviden ce of nodules or definite rheumatoid lung disease. She has had continued shortness of breath. Rales have been heard. She remains on oxygen but only at 1 L. Venous Doppler lower extremity ultrasounds have been negative. She does have lower extremity edema. She complains of anterior chest pain, wor se with respiration. Initial creatinine was 1.4. Creatinine has climbed somewhat to 1.6. BUN is in creased from approximately 40 to 60. White blood cell count has been low to normal. She is anemic a t approximately 32. Albumin is significantly low at 1.7. PAST MEDICAL HISTORY: Remarkable for diabetes, hypertension, and rheumatoid arthritis. SOCIAL HISTORY: She is , with a supportive family. Alcohol and tobacco are negative. She zhao s recently returned to [place]. FAMILY HISTORY: Positive for diabetes. REVIEW OF SYSTEMS: She denies known heart disease, previous thromboembolic disease or other problems except as noted in the HPI. A 10-point review of systems was otherwise negative. PHYSICAL EXAMINATION: GENERAL: Reveals an obese, short woman, who is sitting comfortably on the moi e of the bed. She does complain of chest pain. VITAL SIGNS: Blood pressure is 113/66, heart rate 1 11 and regular, respiratory rate is approximately 20. On 1 L of oxygen, she is 94% saturated. She i s afebrile. HEENT: Unremarkable for lymphadenopathy or thyromegaly. There is no pharyngitis. Ther e is no obvious jugular venous distention. However, her neck is somewhat large. CHEST: Reveals dec reased breath sounds and decreased excursions bilaterally with bibasilar rales. There is no pleural rub. There are no rhonchi. There may be a few expiratory wheezes. HEART: Tones are distant. Hear t is tachycardic. There are no gallops. P2 appears to be normal. ABDOMEN: Obese and soft. There is some epigastric tenderness. There is also tenderness over the lower anterior chest, left medially , which appears to duplicate her chest pain. This is in the area of the costochondral junctions. Juan wel sounds are present. EXTREMITIES: Remarkable for 2 to 3+ pitting edema and tenderness bilaterall y when palpated. There are no obvious cords. DATABASE: CT scan of the chest is as outlined above. Recent followup chest x-ray is unimpressive, with some basilar atelectasis only. Venous Doppler ultrasounds are negative for evidence of DVT bilaterally. LABORATORY DATA: White blood cell count is 2700, hematocrit 31.8. Platelets were 82,000. PT and PT T were normal on admission. Blood lactate was initially 2.4, 1.1 on repeat. Sodium 135, potassium 5 .2, CO2 of 16, BUN 59, with creatinine 1.6. Glucose is approximately 200 to 250. Albumin is 1.7. U rinalysis on admission was positive for red cells and white cells. No urine culture unfortunately wa s done. A sputum culture was done on July 13 and shows only normal oral janee, including some [place]. ASSESSMENT: 1. Chest pain: I think this is musculoskeletal in etiology. I do not think it is pleuritic; howeve r, I cannot absolutely exclude this. There is no evidence of pulmonary embolic disease. Rheumatoid arthritis can give pleuritic chest pain; however, this seems less likely at the present time. 2. Shortness of breath. The patient is short of breath. I think some of this is secondary to her c hest pain. Some is likely secondary to obesity, body habitus and hypoventilation. She does have ral es. It is unclear if the rales are secondary to fluid retention/congestive heart failure. BNP is el evated and she does have edema. Cardiac echo, however, showed only diastolic dysfunction, but she do es have some pulmonary hypertension. She does not appear to have interstitial lung disease related t o her rheumatoid arthritis; however, I would like to see a high-resolution CT scan of the chest befor e ruling this out. Regarding her possible interstitial lung disease, she was given 1 dose of Solu-Me drol at 125 mg. Steroids will not be repeated at this time, but could be considered at lower doses i f there is evidence of significant active rheumatoid disease in the lung. 3. Obesity, probable restrictive lung disease and hypoventilation. 4. Peripheral edema with pulmonary hypertension and diastolic dysfunction. She has been difficult t o diurese secondary to mild increases in her BUN and creatinine. Her albumin is significantly low. Diuresis with albumin may be of benefit. 5. Anemia. PLAN/RECOMMENDATIONS: High-resolution CT scan of the chest will be ordered. Current antibiotics of ceftriaxone and azithromycin will be continued for possible pneumonia; however, this seems less likel y clinically. Appropriate pain control will be maintained. I will try some albumin followed by some Ed today. BUN and creatinine as well as other laboratory values will be followed. Further plans and recommendations will be made based on her progress over the next 12-24 hours. /[id number]/MODL
[2016-07-19] MEDS: FUROSEMIDE 100 MG/10 ML VIAL IVP SCH (13:12)
--- NOTE | 2016-07-19 16:34 | HOSPPROG ---
Hospitalist Progress Note Assessment/Plan: * Acute respiratory failure -differential - PNA vs. RA lung dz vs. hypoventilation -CTA negative for PE -high res CT of lung pending -empiric abx but suspicion for ongoing acute infectious PNA is low - DC soon -increase pulm hygiene - EZ pap, IS * RA - on Humira -worsening RA sx since switch from tocilizumab -hold celebrex due to ARF * ARF -unclear etiology - renal consulted -s/p IV contrast -hold losartan/Celebrex -additional serologies per renal * Cirrhosis of liver - new diagnosis -mild ascites + LE edema -IV albumin + IV lasix * Moderate pulmonary HTN -likely contributes to volume overload in conjunction with liver disease * Obesity BMI 39 - suspect obesity hypoventilation contributing to pulm dz * DM II -increase Lantus to home dose * HTN - holding losartan * Pancytopenia - suspect due to Humira Subjective: Still SOB, some CP, heart fluttering Objective: Vital Signs Temp Pulse Resp BP Pulse Ox 36.6 C 94 18 139/59 H 96 07/19/16 11:51 07/19/16 16:04 07/19/16 16:04 07/19/16 11:51 07/19/16 16:04 Laboratory Results 07/18/16 03:52 07/19/16 04:34 07/18/16 07/19/16 07/20/16 05:59 05:59 05:59 Intake Total 1100 550 120 Output Total 200 800 Balance 900 -250 120 PT 14.7 SEC (12.0-15.0) 07/13/16 Unknown INR 1.17 (0.83-1.16) H 07/13/16 Unknown CXR viewed, my personal interpretation is: hypoventilation with low lung volumes, bibasilar infiltrate ECHO: mod pulm HTN ABD US: cirrhosis with mild ascites CTA: no PE, bibasilar consolidation - Physical Exam Constitutional: no apparent distress, appears nourished, not in pain Cardiovascular: regular rate and rhythym, no murmur, rub, or gallop, edema (3-4+ ) Respiratory: no respiratory distress, no rales or rhonchi, clear to auscultation Gastrointestinal: normoactive bowel sounds, soft, non-tender abdomen, no palpable masses Skin: no rashes or abrasions, no fluctuance, no induration Neurologic: AAOx3, sensation intact bilaterally Psychiatric: interacting appropriately, not anxious, not encephalopathic, thought process linear ICD10 Worksheet Patient Problems: Problems Problem Status Diagnosed Pneumonia Acute
--- NOTE | 2016-07-19 18:37 | CT ---
CT Chest High-Resolution History: 61 year old with shortness of breath, rales, former smoker, history of rheumatoid arthritis . Technique: Axial unenhanced images were obtained through the lungs, with noncontiguous high-resoluti on images through the lungs in the supine position, with and without expiration and in the prone posi tion. Coronal MIPs were performed. Dose reduction techniques were utilized. Comparison: Portable chest July 18, 2016, [place] and lateral chest July 15, 2016, CT angiogram [facility] July 13, 2016 and June 04, 2016. Findings: There are new patchy predominantly peripheral areas of consolidation bilaterally, most con spicuous in the left upper, right upper, and right middle lobes. Irregular, probably linear areas o f consolidation are stable to slightly increased. Small bilateral pleural effusions are slightly inc reased. Mild centrilobular emphysema is suspected. Mild cardiomegaly is stable. Three-vessel coron eddie artery atherosclerosis is again noted. Trace pericardial thickening is stable. Atherosclerotic calcification is present in a normal caliber aorta. No pathologically enlarged lymph nodes are ident ified. The bones are stable. A small to moderate volume of ascites is stable. Mild splenomegaly is again noted. Impressions 1. New patchy multifocal peripheral consolidation, most suggestive of pneumonia, given lack of visib le pulmonary embolus on the previous study. 2. Slight increase in linear bibasilar consolidation, which could be related to atelectasis or less likely pneumonia. Underlying consolidation limits sensitivity for interstitial lung disease. 3. Increased small bilateral pleural effusions. 4. Small to moderate ascites.
[2016-07-19] MEDS: ENOXAPARIN 40 MG/0.4 ML SYR SC SCH (21:02)
[2016-07-19] MEDS: INSULIN GLARGINE 100 UNITS/ML SYRINGE SC SCH (21:11)
[2016-07-20 05:08] LABS: % IMMATURE GRANULYOCYTES 0.3 % (0.0-1.1); ABSOLUTE IMMATURE GRANULOCYTES 0.01 10^3/uL (0.00-0.10); ADD DIFF? NO; ADD MORPH? NO; ADD SCAN? NO; ATYPICAL LYMPHOCYTE FLAG 50 (0-99); FRAGMENT RBC FLAG 0 (0-99); HEMOGLOBIN 10.3 g/dL (12.6-16.3); LEFT SHIFT FLG 40 (0-99); LIPEMIA HEMOLYSIS FLAG 80 (0-99); MEAN CELL HEMOGLOBIN 29.3 pg (27.9-34.1); MEAN CELL HEMOGLOBIN CONCENTR. 33.2 g/dL (32.4-36.7); MEAN CELL VOLUME 88.3 fL (81.5-99.8); MEAN PLATELET VOLUME 11.9 fL (8.7-11.7); PLATELET CLUMPS FLAG 0 (0-99); PLATELET COUNT 102 10^3/uL (150-400); RED BLOOD CELL COUNT 3.51 10^6/uL (4.18-5.33); RED CELL DISTRIBUTION WIDTH 15.6 % (11.5-15.2)
[2016-07-20 05:33] LABS: ALBUMIN 2.1 g/dL (3.5-5.0); ANION GAP 8 mEq/L (8-16); CALCIUM 7.7 mg/dL (8.5-10.4); CARBON DIOXIDE 18 mEq/l (22-31); CHLORIDE 112 mEq/L (97-110); CREATININE 1.5 mg/dL (0.6-1.0); GLOMERULAR FILTRATION RATE 36; GLUCOSE 147 mg/dL (70-100); POTASSIUM 4.4 mEq/L (3.5-5.2); SODIUM 138 mEq/L (134-144)
[2016-07-20] MEDS: IPRATROPIUM/ALBUTEROL 3 ML DEYVIAL IH SCH ×4 (05:39→21:16)
[2016-07-20] MEDS: HYDROCODONE/APAP 5/325 TAB PO PRN ×2 (08:31→22:27)
[2016-07-20] MEDS: AZITHROMYCIN 250 MG TAB PO SCH (08:32)
[2016-07-20] MEDS: CETIRIZINE 10 MG TAB PO SCH (08:33)
[2016-07-20] MEDS: guaiFENesin 600 MG TAB.ER PO SCH (08:33)
[2016-07-20] MEDS: SENNOSIDES/DOCUSATE SODIUM TAB PO SCH ×2 (08:34→22:06)
[2016-07-20] MEDS: PANTOPRAZOLE SODIUM 40 MG TAB PO SCH (08:34)
[2016-07-20] MEDS: FUROSEMIDE 100 MG/10 ML VIAL IVP SCH (08:35)
[2016-07-20] MEDS: INSULIN LISPRO 100 UNIT/ML SC SCH ×3 (09:03→18:04)
[2016-07-20] MEDS ORDERED: METOLAZONE 5 MG TAB PO ONE (09:29)
[2016-07-20] MEDS ORDERED: ALBUMIN 25% 100 ML IV ONE (09:31)
--- NOTE | 2016-07-20 09:36 | SOAPPROG ---
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 -C3, C4 pending -given lasix yesterday along with 5% albumin -will give 25% albumin and zaroxolyn today -will give afternoon dose of lasix today and follow response -encouraged increased protein intake, discussed sources -RN to assist patient with diet 07/20/16 09:32 Subjective: tired, short of breath Objective: Vital Signs Temp Pulse Resp BP Pulse Ox 36.7 C 98 24 H 149/89 H 94 07/20/16 08:20 07/20/16 08:20 07/20/16 09:22 07/20/16 09:22 07/20/16 08:20 Laboratory Results 07/20/16 04:46 07/20/16 04:46 07/19/16 07/20/16 07/21/16 05:59 05:59 05:59 Intake Total 550 120 Output Total 800 600 150 Balance -250 -480 -150 PT 14.7 SEC (12.0-15.0) 07/13/16 Unknown INR 1.17 (0.83-1.16) H 07/13/16 Unknown Physical Exam - Physical Exam General Appearance: alert, mild distress EENT: normal ENT inspection Neck: normal inspection Respiratory: decreased breath sounds (1/2 up on R, decreased at L base) Cardiac/Chest: regular rate, rhythm, No diastolic murmur, No systolic murmur Abdomen: normal bowel sounds, non-tender Extremities: swelling (edema into thighs) ICD10 Worksheet Patient Problems: Problems Problem Status Diagnosed Pneumonia Acute
[2016-07-20] MEDS: ACETAMINOPHEN 325 MG TAB PO PRN ×3 (09:38→21:58)
[2016-07-20] MEDS: PROBIOTICS PO SCH ×3 (10:04→18:05)
[2016-07-20] MEDS: oxyCODONE IR 5 MG TAB PO PRN (13:17)
[2016-07-20] MEDS ORDERED: FUROSEMIDE 100 MG/10 ML VIAL IVP ONE (14:00)
--- NOTE | 2016-07-20 15:24 | HOSPPROG ---
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 hepatic origin -IV albumin + IV lasix * Moderate pulmonary HTN -likely contributes to volume overload in conjunction with liver disease * Obesity BMI 39 - suspect obesity hypoventilation contributing to pulm dz * DM II -increase Lantus to home dose * HTN - holding losartan * Pancytopenia - suspect due to Humira * Elevated TSH - check free T4 Subjective: lethargic today Objective: Vital Signs Temp Pulse Resp BP Pulse Ox 36.8 C 88 26 H 162/99 H 95 07/20/16 15:03 07/20/16 15:03 07/20/16 15:03 07/20/16 15:03 07/20/16 15:03 Laboratory Results 07/20/16 04:46 07/20/16 04:46 07/19/16 07/20/16 07/21/16 05:59 05:59 05:59 Intake Total 550 120 550 Output Total 800 600 750 Balance -250 -480 -200 PT 14.7 SEC (12.0-15.0) 07/13/16 Unknown INR 1.17 (0.83-1.16) H 07/13/16 Unknown - Physical Exam Constitutional: no apparent distress, appears nourished, not in pain Cardiovascular: regular rate and rhythym, no murmur, rub, or gallop Respiratory: no respiratory distress, no rales or rhonchi, clear to auscultation Gastrointestinal: normoactive bowel sounds, soft, non-tender abdomen, no palpable masses Skin: no rashes or abrasions, no fluctuance, no induration Neurologic: AAOx3, sensation intact bilaterally Psychiatric: interacting appropriately, not anxious, not encephalopathic, thought process linear ICD10 Worksheet Patient Problems: Problems Problem Status Diagnosed Pneumonia Acute
[2016-07-20 16:19] LABS: C3 COMPLEMENT COMPONENT 51 mg/dL (75 - 175)
[2016-07-20 16:50] LABS: C4 COMPLEMENT COMPONENT 7 mg/dL (14 - 40)
[2016-07-20] MEDS: ONDANSETRON DISINTEGRATING 4 MG TAB PO PRN (18:03)
[2016-07-20] MEDS: ENOXAPARIN 40 MG/0.4 ML SYR SC SCH (22:06)
[2016-07-20] MEDS: INSULIN GLARGINE 100 UNITS/ML SYRINGE SC SCH (22:07)
[2016-07-21] MEDS: IPRATROPIUM/ALBUTEROL 3 ML DEYVIAL IH SCH ×4 (04:31→21:57)
[2016-07-21 05:08] LABS: % IMMATURE GRANULYOCYTES 1.1 % (0.0-1.1); ABSOLUTE IMMATURE GRANULOCYTES 0.03 10^3/uL (0.00-0.10); ADD DIFF? NO; ADD MORPH? NO; ADD SCAN? NO; ATYPICAL LYMPHOCYTE FLAG 0 (0-99); FRAGMENT RBC FLAG 0 (0-99); HEMATOCRIT 31.4 % (38.0-47.0); HEMOGLOBIN 10.5 g/dL (12.6-16.3); LEFT SHIFT FLG 60 (0-99); LIPEMIA HEMOLYSIS FLAG 80 (0-99); MEAN CELL HEMOGLOBIN 29.3 pg (27.9-34.1); MEAN CELL HEMOGLOBIN CONCENTR. 33.4 g/dL (32.4-36.7); MEAN CELL VOLUME 87.7 fL (81.5-99.8); MEAN PLATELET VOLUME 11.2 fL (8.7-11.7); PLATELET CLUMPS FLAG 0 (0-99); PLATELET COUNT 95 10^3/uL (150-400); RED BLOOD CELL COUNT 3.58 10^6/uL (4.18-5.33); RED CELL DISTRIBUTION WIDTH 15.6 % (11.5-15.2)
[2016-07-21 05:34] LABS: ALBUMIN 2.1 g/dL (3.5-5.0); ANION GAP 9 mEq/L (8-16); CALCIUM 7.7 mg/dL (8.5-10.4); CARBON DIOXIDE 20 mEq/l (22-31); CHLORIDE 112 mEq/L (97-110); CREATININE 1.3 mg/dL (0.6-1.0); GLOMERULAR FILTRATION RATE 42; GLUCOSE 112 mg/dL (70-100); POTASSIUM 4.2 mEq/L (3.5-5.2); SODIUM 141 mEq/L (134-144)
[2016-07-21] MEDS: ACETAMINOPHEN 325 MG TAB PO PRN ×2 (07:24→13:00)
[2016-07-21] MEDS: PANTOPRAZOLE SODIUM 40 MG TAB PO SCH (07:24)
[2016-07-21] MEDS: ONDANSETRON DISINTEGRATING 4 MG TAB PO PRN ×2 (07:25→13:00)
[2016-07-21] MEDS: PROBIOTICS PO SCH ×5 (08:00→18:56)
[2016-07-21] MEDS: FUROSEMIDE 100 MG/10 ML VIAL IVP SCH (08:21)
[2016-07-21] MEDS: CETIRIZINE 10 MG TAB PO SCH (08:24)
[2016-07-21] MEDS: SENNOSIDES/DOCUSATE SODIUM TAB PO SCH ×2 (08:24→22:37)
[2016-07-21] MEDS: INSULIN LISPRO 100 UNIT/ML SC SCH ×3 (09:58→18:45)
--- NOTE | 2016-07-21 11:14 | SOAPPROG ---
SOAP Progress Note Assessment/Plan: Assessment: 1. LETI. +hematuria, proteinuria, low C3/4. 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 Chk paraprotein studies, ADRY, ANCA (would not have low c3/4), RF. Hep seros negative. Likely also has atn related to contrast. Creat improving. 2. Dyspnea. Multifactorial. Immunosuppressed. Completed abx for pna. Not thought to have RA lung. Obesity/pulm htn/CHF? Trying to diurese. 3. Edema. Need to quantify urine protein (study never came back). May have nephrosis. Also appears to have cirrhosis/splenomegaly on imaging. Diurese. Cesar hose. 4. Cirrhosis. New dx. Will need further eval. Plan: 07/21/16 11:11 07/21/16 11:19 07/21/16 11:19 07/21/16 11:21 07/21/16 11:24 Subjective: C/o morning stiffness. Dry cough. Improving. Objective: Vital Signs Temp Pulse Resp BP Pulse Ox 37.0 C 111 H 14 155/86 H 87 L 07/21/16 07:08 07/21/16 10:09 07/21/16 10:09 07/21/16 07:08 07/21/16 10:09 Laboratory Results 07/21/16 04:16 07/21/16 04:16 07/20/16 07/21/16 07/22/16 05:59 05:59 05:59 Intake Total 120 650 Output Total 600 750 400 Balance -480 -100 -400 PT 14.7 SEC (12.0-15.0) 07/13/16 Unknown INR 1.17 (0.83-1.16) H 07/13/16 Unknown Obese, deconditioned, in chair RRR, no m/g/r, no JVD Dry crackles 2/3 up on L, 1/2 up on R Abdom obese, nontender 3+ sacral to ankle pitting edema ICD10 Worksheet Patient Problems: Problems Problem Status Diagnosed Chronic Disease [facility]/Transitional Care Acute Pneumonia Acute
[2016-07-21 11:32] LABS: RANDOM URINE PROTEIN 312 mg/dL
--- NOTE | 2016-07-21 19:53 | HOSPPROG ---
Hospitalist Progress Note Assessment/Plan: * Acute respiratory failure -pulmonary infiltrates - ? infection vs. other * Pneumonia -s/p day #7 ceftriaxone/azithro * RA - on Humira -worsening RA sx since switch from tocilizumab -hold celebrex due to ARF * Glomerulonephritis - active urine sediment with low complements -also element of contrast nephropathy -hold losartan/Celebrex -additional serologies per renal * Cirrhosis of liver - new diagnosis -mild ascites + LE edema - unclear if renal vs. hepatic origin -IV albumin + IV lasix * Moderate pulmonary HTN -likely contributes to volume overload in conjunction with liver disease * Obesity BMI 39 - suspect obesity hypoventilation contributing to pulm dz * DM II -increase Lantus to home dose * HTN - holding losartan * Pancytopenia - suspect due to Humira * Elevated TSH - free T4 normal * Post-prandial abdominal pain and early satiety -check CT abd Subjective: No new complaints Objective: Vital Signs Temp Pulse Resp BP Pulse Ox 36.8 C 101 H 12 165/80 H 95 07/21/16 16:00 07/21/16 16:11 07/21/16 16:11 07/21/16 16:00 07/21/16 16:11 Laboratory Results 07/21/16 04:16 07/21/16 04:16 07/20/16 07/21/16 07/22/16 05:59 05:59 05:59 Intake Total 622 071 1169 Output Total 192 706 2398 Balance -480 -100 200 PT 14.7 SEC (12.0-15.0) 07/13/16 Unknown INR 1.17 (0.83-1.16) H 07/13/16 Unknown - Physical Exam Constitutional: no apparent distress, appears nourished, not in pain Cardiovascular: regular rate and rhythym, no murmur, rub, or gallop, edema Respiratory: no respiratory distress, no rales or rhonchi, clear to auscultation Gastrointestinal: normoactive bowel sounds, soft, non-tender abdomen, no palpable masses Skin: no rashes or abrasions, no fluctuance, no induration Neurologic: AAOx3, sensation intact bilaterally Psychiatric: interacting appropriately, not anxious, not encephalopathic, thought process linear ICD10 Worksheet Patient Problems: Problems Problem Status Diagnosed Chronic Disease Mgmt/Transitional Care Acute Pneumonia Acute
[2016-07-21] MEDS: oxyCODONE IR 5 MG TAB PO PRN (21:49)
[2016-07-21] MEDS: INSULIN GLARGINE 100 UNITS/ML SYRINGE SC SCH (21:50)
--- NOTE | 2016-07-21 23:06 | CT ---
CT abdomen pelvis without contrast. Indication: acute renal failure and cirrhosis. TECHNIQUE: 1.25 mm contiguous helical axial scanning from lung bases through the pubic symphysis with out contrast. Routine reconstructions in the coronal and sagittal planes. Dose reduction technique wa s performed. The patient did receive oral contrast. FINDINGS: There is bibasilar small effusions and atelectasis. Ascites is noted around the liver edge. The gallbladder is absent. The spleen is enlarged measuring 16.8 cm in length. The liver is enlarged measuring 19 cm in length. There is a nonobstructing punctate calculi in the lower collecting system measuring 2 mm, right side. There is mild perinephric edema without obstruction. There is diffuse an asarca. There are some areas of bowel wall thickening likely related to the cirrhosis. Trace fluid is present in the low pelvis. The bladder is fluid-filled. IMPRESSION: 1. Hepatosplenomegaly with ascites and anasarca. Small effusions with adjacent consolidative change a re present at both bases 2. No evidence of renal obstruction. Punctate nonobstructing 2 mm calculi noted in the right lower ki dney.
[2016-07-21] MEDS: ENOXAPARIN 40 MG/0.4 ML SYR SC SCH (23:50)
[2016-07-22 05:08] LABS: % IMMATURE GRANULYOCYTES 0.9 % (0.0-1.1); ABSOLUTE IMMATURE GRANULOCYTES 0.03 10^3/uL (0.00-0.10); ADD DIFF? NO; ADD MORPH? NO; ADD SCAN? NO; ATYPICAL LYMPHOCYTE FLAG 0 (0-99); FRAGMENT RBC FLAG 0 (0-99); HEMATOCRIT 31.3 % (38.0-47.0); HEMOGLOBIN 10.5 g/dL (12.6-16.3); LEFT SHIFT FLG 50 (0-99); LIPEMIA HEMOLYSIS FLAG 80 (0-99); MEAN CELL HEMOGLOBIN 29.7 pg (27.9-34.1); MEAN CELL HEMOGLOBIN CONCENTR. 33.5 g/dL (32.4-36.7); MEAN CELL VOLUME 88.4 fL (81.5-99.8); MEAN PLATELET VOLUME 11.7 fL (8.7-11.7); PLATELET CLUMPS FLAG 0 (0-99); PLATELET COUNT 96 10^3/uL (150-400); RED BLOOD CELL COUNT 3.54 10^6/uL (4.18-5.33); RED CELL DISTRIBUTION WIDTH 15.6 % (11.5-15.2)
[2016-07-22] MEDS: IPRATROPIUM/ALBUTEROL 3 ML DEYVIAL IH SCH ×2 (05:15→11:08)
[2016-07-22 05:24] LABS: ANION GAP 8 mEq/L (8-16); CALCIUM 7.7 mg/dL (8.5-10.4); CARBON DIOXIDE 21 mEq/l (22-31); CHLORIDE 111 mEq/L (97-110); CREATININE 1.2 mg/dL (0.6-1.0); GLOMERULAR FILTRATION RATE 46; GLUCOSE 93 mg/dL (70-100); POTASSIUM 4.2 mEq/L (3.5-5.2); SODIUM 140 mEq/L (134-144)
[2016-07-22] MEDS: oxyCODONE IR 5 MG TAB PO PRN (07:12)
--- NOTE | 2016-07-22 09:10 | SOAPPROG ---
SOAP Progress Note Assessment/Plan: Assessment: Chronic multiorgan illness - pulm infiltrates, anorexia/malnutrition , GN, pancytopenia 1. LETI. +hematuria, proteinuria, low C3/4, very elevated RF (194). Has 3 g proteinuria, all c/w GN. Could be secondary amyloidosis, cryo/MPGN (from chronic untreated RA),membranous, infection related, other. Chk paraprotein studies, ADRY, ANCA (would not have low c3/4). Hep seros negative. Likely also has atn related to contrast. Creat ok. May have cryo/MPGN, membranous, IRGN, other. Kidney bx would be helpful, but perhaps rheum consult and RA rx even more so. Bx higher risk with low plts, cirrhosis, obesity. If bx shows cryo/MPGN or secondary amyloidosis presumed from untreated RA, underlying rx will be to treat RA. Since creat improving, favor rheum eval before proceeding with bx. 2. Dyspnea. Multifactorial. Immunosuppressed. Completed abx for pna. Obesity/ pulm htn/diastolic CHF contributing but suspect there may be more. Query RA lung or other autoimmune although imaging not pathognomonic. Slowly diuresing. 3. Edema. Nephrosis/malnutrition/cirrhosis. Minimal ascites. Diurese. Consider add aldactone. Cesar hose. 4. Cirrhosis. New dx. AI/YUAN/other? Will need further eval. 5. Pancytopenia. Possibly d/t splenomegaly. Plan: Subjective: Reviewed hx. Feeling poorly svrl mos, maybe 1 year. Poor appetite. Switched biologics to humira in Feb after allergic rxn. Has not been able to reestablish care with Rheum since moving back to [place]. Objective: Vital Signs Temp Pulse Resp BP Pulse Ox 38.2 C 108 H 30 H 161/74 H 88 L 07/22/16 08:00 07/22/16 08:00 07/22/16 08:00 07/22/16 08:00 07/22/16 08:00 Laboratory Results 07/22/16 04:07 07/22/16 04:07 07/21/16 07/22/16 07/23/16 05:59 05:59 05:59 Intake Total 650 1500 Output Total 750 1350 Balance -100 150 PT 14.7 SEC (12.0-15.0) 07/13/16 Unknown INR 1.17 (0.83-1.16) H 07/13/16 Unknown Debilitated, dyspneic, obese, in bed RRR, no m/g/r; JVD mid neck Crackles ~2/3 up bilaterally Abdom soft, nt 3+ LE pitting edema No obvious purpura, petechiae. No finger jt swelling/erythema. No aphthous ulcers ICD10 Worksheet Patient Problems: Problems Problem Status Diagnosed Chronic Disease Mgmt/Transitional Care Acute Pneumonia Acute
[2016-07-22] MEDS: INSULIN LISPRO 100 UNIT/ML SC SCH ×2 (10:15→13:44)
[2016-07-22] MEDS: CETIRIZINE 10 MG TAB PO SCH (10:19)
[2016-07-22] MEDS: FUROSEMIDE 100 MG/10 ML VIAL IVP SCH (10:20)
[2016-07-22] MEDS: PANTOPRAZOLE SODIUM 40 MG TAB PO SCH (10:21)
[2016-07-22] MEDS: PROBIOTICS PO SCH ×2 (10:26→13:55)
[2016-07-22] MEDS: SENNOSIDES/DOCUSATE SODIUM TAB PO SCH (10:29)
[2016-07-22] MEDS: ACETAMINOPHEN 325 MG TAB PO PRN ×2 (10:38→16:11)
--- NOTE | 2016-07-22 11:01 | GDS ---
[f rep st] DISCHARGE SUMMARY Transferred to [facility]. DIAGNOSES: 1. Suboptimally treated rheumatoid arthritis. 2. Bilateral pulmonary infiltrates of unclear etiology. Suspect autoimmune, with acute respiratory failure. 3. Glomerulonephritis. 4. Cirrhosis of the liver. New diagnosis. 5. Moderate pulmonary hypertension. 6. Obesity. Body mass index 39. 7. Diabetes type 2. 8. Hypertension. 9. Pancytopenia. HISTORY: The patient is a 61-year-old female with a long-standing history of rheumatoid arthritis, w hich was previously well controlled on tocilizumab. She was living in [place] but recently moved back to [place]. She was previously established with Dr. Tong Polanco at [facility]. While she was in [place], she developed acute angioedema due to tocilizumab and it had to be discontinued. She was switched to Humira. Since she has been on Humira, however, her rheumatoid arthritis control has been very poor. She has not yet been able to re-establish with Dr. Polanco s sherif moving back to [place], has been quite ill since moving, and eventually ended up coming to the emergency room at [facility]. She presented to [facility] on July 13 complaining of shortness of breath. This had been going on for we eks. She had already received an outpatient course of antibiotics for pneumonia. Despite antibiotic treatment, her shortness of breath persisted. In the emergency room, she got a CT angiogram of the chest that was negative for pulmonary embolism, but it did show patchy bibasilar consolidative change , as well as incidental noting of cirrhosis of the liver with ascites and splenomegaly. She was give n another round of antibiotics. However, continued to have lack of improvement. She was also noted to have a mild creatinine elevation. This did briefly worsen due to contrast neph ropathy from that initial CT scan. Nephrology was consulted and she was found to have an active urin eddie sediment with 3 g of proteinuria, hematuria, and she is also diffusely edematous. Complements ca me back low with a C3 of 51 and C4 of 7. This is all consistent with glomerulonephritis. Rheumatoid factor is very elevated at 194. It is unclear if this autoimmune phenomenon we are seeing is related to her rheumatoid arthritis with secondary amyloidosis, cryoglobulinemia/MPGN from chroni c under treated RA. Membranous or post infection GN are all in the differential diagnosis. Hepatiti s serologies are negative. Additional serologies are still pending, including paraprotein studies, A NA, and ANCA, although that would not have a low C3-C4. Nephrology does believe a kidney biopsy would be helpful, although a kidney biopsy is high risk in he r given her thrombocytopenia, cirrhosis, obesity. They wished for a formal Rheumatology consultation prior to pursuing kidney biopsy. If Rheumatology does feel all of this is most consistent with untr eated rheumatoid arthritis, potentially we could treat her empirically without having to put her thro ugh a kidney biopsy. We do not have an intensive Rheumatology coverage here at [facility] and the patient is well established Dr. Polanco at [facility], so decision was made to transfer to [facility] for further care. ADDITIONAL MEDICAL PROBLEMS: 1. Acute respiratory failure. She is stable in 1-2 L of oxygen. She did get a high-resolution CT s can of the chest and a Pulmonary consultation here. The high-resolution CT showed patchy multifocal peripheral consolidation. It was not classic for rheumatoid lung, so etiology of pulmonary infiltrat es remains unclear. She completed a full 7 days of ceftriaxone and azithromycin. They are now disco ntinued. She remains short of breath. Obesity hypoventilation syndrome may be contributing to her p ulmonary disease. Echocardiogram does show moderate pulmonary hypertension, which is likely contribu ting to her volume overload. 2. Cirrhosis of the liver. This is incidentally noted on imaging. It has not been worked up any fu rther at this time. She had known fatty liver disease, which may be the etiology. However, further workup is likely indicated. She does complain of postprandial abdominal pain and early satiety. CT scan of the abdomen just showed ascites and otherwise unremarkable. We were attempting diuresis here with IV albumin and IV Lasix. 3. Pancytopenia. This also needs further evaluation at [facility]. Unclear how this ties into her big picture. DISCHARGE MEDICATIONS: Please see computer record for full detailed list. Her current medication li st is minimal including: Lantus 50 units subcutaneous daily. Loratadine 10 mg p.o. daily. Omeprazo le 20 mg p.o. daily as needed. ADDITIONAL DISCHARGE INSTRUCTIONS: 1. Transfer to [facility] for tertiary care and formal Rheumatology consultation. 2. Consider kidney biopsy for glomerulonephritis, but desire Rheumatology consultation prior to sierran margo this. 3. Consider further workup of new diagnosis cirrhosis of the liver. 4. Continue to hold her home losartan and Celebrex. 5. Pending studies at the time of hospital discharge from [facility] include ADRY, ANCAs, prot einase 3 and myeloperoxidase antibody, paraprotein studies including free kappa and lambda quantitati ve. 6. Accepting physician at [facility] is Dr. Franky Santos. I have personally spoken with him at length regarding this hospital transfer. Greater than 30 minutes' time was spent arranging this discharge. /[id number]/MODL
[2016-07-22 15:09] LABS: ANTINUCLEAR ANTIBODIES SCREEN 13.66 UNITS (<1.00)
[2016-07-22 16:09] VITALS: BP 159/74; PULSE 105; RESP 24; TEMP 99.4; O2SAT 94
[2016-07-23 18:23] LABS: IG KAPPA FREE LIGHT CHAIN 14.2 mg/dL (()); IG LAMBDA FREE LIGHT CHAIN 12.6 mg/dL (()); KAPPA/LAMBDA RATIO 1.13 (())
== END 2016-07-22 16:28 | disposition short-term general hospital (02) | DRG 193 ==
LOC: CED 13:53 → CEDHOLD 16:42 → F2W 20:19
PROVIDERS: ADMIT Hospitalist; ATTEND Hospitalist
DX: J18.8 Other pneumonia, unspecified organism (principal); J96.01 Acute respiratory failure with hypoxia; D61.818 Other pancytopenia; N17.9 Acute kidney failure, unspecified; M06.9 Rheumatoid arthritis, unspecified; R91.8 Other nonspecific abnormal finding of lung field; N05.9 Unspecified nephritic syndrome with unspecified morphologic changes; K74.60 Unspecified cirrhosis of liver; I27.2 Other secondary pulmonary hypertension; I11.0 Hypertensive heart disease with heart failure; I50.9 Heart failure, unspecified; E11.9 Type 2 diabetes mellitus without complications; E87.5 Hyperkalemia; Z68.39 Body mass index [BMI] 39.0-39.9, adult; Z87.891 Personal history of nicotine dependence; Z79.2 Long term (current) use of antibiotics
CPT/HCPCS: 71020-PO; 71275-PO; 80053-PO; 82607-90; 83516-90; 83520-90; 83605-PO; 83880-PO; 84481-90; 84484-PO; 85025-PO; 85610-PO; 85730-PO; 86334-90; 87400-PO; 87449-90; 96361-PO; 96365-PO; 96366-PO; 96367-PO; 96375-PO; 97116-GP; 97161-GP; 97166-GO; 97530-GP; 97535-GO; 99215-PO; G0463-PO; G8978-GP-CJ; G8979-GP-CI; G8987-GO-CJ; G8988-GO-CI; J0456; J0696; J1650; J1815; J2405; P9041; P9047; Q9967

== ENCOUNTER → 2016-09-24 | Outpatient (CLI) | payer OTHER | LOC: BHFA 14:00 | PROVIDERS: ATTEND Internal Medicine Cardiovascular Disease | DX: I10 Essential (primary) hypertension (principal) | CPT/HCPCS: 78452; 93017; A9500; J2785 ==

== ENCOUNTER → 2016-11-11 | Outpatient (CLI) | payer OTHER, MEDICAID | LOC: CIMAGING 13:09 | PROVIDERS: ATTEND Family Medicine | DX: R91.8 Other nonspecific abnormal finding of lung field (principal) | CPT/HCPCS: 71020-PO ==

== ENCOUNTER → 2017-03-31 | Outpatient (CLI) | payer OTHER, MEDICAID | LOC: FIMAGING 14:59 | PROVIDERS: ATTEND Family Medicine | DX: M79.604 Pain in right leg (principal); M79.605 Pain in left leg; E11.9 Type 2 diabetes mellitus without complications ==

== ENCOUNTER → 2017-04-26 | Outpatient (CLI) | payer OTHER, MEDICAID | LOC: FIMAGING 06:57 | PROVIDERS: ATTEND Family Medicine | DX: M79.604 Pain in right leg (principal); M79.605 Pain in left leg; R22.43 Localized swelling, mass and lump, lower limb, bilateral; E11.9 Type 2 diabetes mellitus without complications; R18.8 Other ascites; R93.41 Abnormal radiologic findings on diagnostic imaging of renal pelvis, ureter, or bladder ==

== ENCOUNTER → 2017-05-31 | Outpatient (CLI) | payer OTHER, MEDICAID | LOC: CIMAGING 14:35 | PROVIDERS: ATTEND Family Medicine | DX: Z96.651 Presence of right artificial knee joint (principal); E11.9 Type 2 diabetes mellitus without complications | CPT/HCPCS: 73560-PO ==